=== PATIENT | female | born 1945 | race Caucasian/White ===

== ENCOUNTER → 2016-11-14 | Outpatient (CLI) | payer MEDICARE, OTHER | LOC: RAD 13:48 | PROVIDERS: ATTEND Family Medicine | DX: Z12.31 Encounter for screening mammogram for malignant neoplasm of breast (principal) | CPT/HCPCS: 77067 ==

== ENCOUNTER → 2018-10-28 | Outpatient (CLI) | payer MEDICARE, OTHER | LOC: CARD 13:16 | PROVIDERS: ATTEND Internal Medicine Interventional Cardiology | DX: E78.5 Hyperlipidemia, unspecified (principal); I10 Essential (primary) hypertension; M79.89 Other specified soft tissue disorders; R06.00 Dyspnea, unspecified; Z87.891 Personal history of nicotine dependence | CPT/HCPCS: 93306 ==

== ENCOUNTER → 2018-12-26 | Outpatient (CLI) | payer MEDICARE, OTHER ==
[~2018-12-26] MED LIST: CATHETER FLUSH 10 ML SYR IV PRN; REGADENOSON 0.4 MG/5 ML SYR (LEXISCAN) IV ONE
[2018-12-26 08:59] VITALS: BP 139/77
[2018-12-26 09:02] VITALS: BP 139/93
--- NOTE | 2018-12-27 12:40 | Cardiology Stress Test Report ---
Stress Test Report Type of NM Stress Test: Test Type: LEXISCAN 0.4MG/5ML Date of Procedure/Referring: Date of Procedure: Dec 26, 2018 PCP Goran Hooper MD Admitting Physician Ivette Boyle MD Indications: Shortness of breath Baseline Heart Rate: 59 Baseline Blood Pressure: Blood Pressure Systolic: 139 Blood Pressure Diastolic: 93 Baseline EKG: Baseline EKG: sinus rhythm Summary & Conclusion: Summary: The patient was brought to the stress lab after informed consent was taken. Stress test was performed according to the Lexiscan protocol. 0.4 mg of IV Lexiscan was given. Low-grade exercise was performed. Baseline EKG showed sinus rhythm at 59 BPM. Initial blood pressure was 139/77 mmHg. Maximum heart rate was 79 bpm and blood pressure 152/80 mmHg. Patient did not have any chest pain, arrhythmias or ST segment changes during the stress test. 8.71 mCi of Myoview were given for rest imaging and 23.8 mCi of Myoview given for stress imaging. Transient ischemic dilatation score 0.8, EF 66 percent. Normal wall motion. Normal myocardial perfusion imaging during rest and stress. Conclusion: Pharmacological stress test was negative for ischemia. Normal LV function with no wall motion abnormalities. Normal myocardial perfusion imaging during rest and stress. Goran HOOPER MD Dec 27, 2018 12:40
== END ==
LOC: CARD 07:17
PROVIDERS: ATTEND Internal Medicine Interventional Cardiology
DX: E78.5 Hyperlipidemia, unspecified (principal); I10 Essential (primary) hypertension; M79.89 Other specified soft tissue disorders; R06.00 Dyspnea, unspecified; R06.02 Shortness of breath; Z87.891 Personal history of nicotine dependence
CPT/HCPCS: 78452; 93017

== ENCOUNTER → 2019-01-10 | Outpatient (CLI) | payer MEDICARE, OTHER ==
--- NOTE | 2019-01-10 18:01 | Diagnostic Imaging Report ---
INDICATION: Routine screening. COMPARISON: Prior mammograms from 12/12/2017 and 11/14/2016. EXAMINATION: 2D and 3D bilateral screening mammography was performed with CAD. 3D tomographic images were obtained and reviewed. The current study was also evaluated with a Computer Aided Detection (CAD) system. FINDINGS: Bilateral breast implants are again noted. There are calcifications along the implant shells, bilaterally. Overall contour appears stable. Scattered fibroglandular densities are identified, bilaterally. The parenchymal pattern appears to be stable. No mass or malignant appearing microcalcifications are seen. The axillae are unremarkable. IMPRESSION: No mammographic features suspicious for malignancy are identified. ACR BI-RADS Category 2: Benign findings. Result letter will be mailed to the patient. Note: At least 10% of breast cancer is not imaged by mammography. Dictated on workstation # [id number]
== END ==
LOC: RAD 10:14
PROVIDERS: ATTEND Nurse Practitioner Family
DX: Z12.31 Encounter for screening mammogram for malignant neoplasm of breast (principal)
CPT/HCPCS: 77067

== ENCOUNTER → 2019-08-11 | Outpatient (CLI) | payer MEDICARE | LOC: LABNPT 14:38 → MERGE 14:38 | PROVIDERS: ATTEND Nurse Practitioner Family | DX: R50.9 Fever, unspecified (principal); R05 Cough | CPT/HCPCS: 87430; 87635; 87804 ==

== ENCOUNTER → 2020-01-27 | Outpatient (CLI) | payer MEDICARE ==
--- NOTE | 2020-01-27 13:18 | Diagnostic Imaging Report ---
INDICATION: Routine screening. COMPARISON: 01/10/2019 and 12/12/2017. TECHNIQUE: 2D and 3D bilateral screening mammography was performed with CAD. FINDINGS: Bilateral breast implants are again noted. There are some calcifications along the implant shells bilaterally. No extracapsular rupture is seen. Both breasts are heterogeneously dense, limiting the sensitivity of mammography. The parenchymal pattern is stable. No mass or malignant appearing microcalcifications are seen. The axillae are unremarkable. IMPRESSION: No mammographic features suspicious for malignancy are identified. ACR BI-RADS Category 2: Benign findings. Result letter will be mailed to the patient. Note: At least 10% of breast cancer is not imaged by mammography. Dictated by: Dictated on workstation # [id number]
== END ==
LOC: RAD 08:38
PROVIDERS: ATTEND Nurse Practitioner Family
DX: Z12.31 Encounter for screening mammogram for malignant neoplasm of breast (principal)
CPT/HCPCS: 77063; 77067

== ENCOUNTER → 2020-09-14 | Outpatient (CLI) | payer MEDICARE, OTHER ==
--- NOTE | 2020-09-14 13:48 | Diagnostic Imaging Report ---
INDICATION: Anal cancer, abdominal pain, vomiting COMPARISON: None available. TECHNIQUE: Single radiograph of abdomen dated 09/14/2020 FINDINGS: Gas is identified within scattered loops of large and small bowel. No dilated bowel present. No differential air-fluid levels. No free air. No suspicious calcifications overlying the renal shadows. Low-grade osseous degenerative changes without acute osseous abnormality. IMPRESSION: No acute abnormality with additional findings as above. Dictated by: Dictated on workstation # [id number]
== END ==
LOC: RAD 10:26
DX: C21.0 Malignant neoplasm of anus, unspecified (principal); R10.9 Unspecified abdominal pain; R11.10 Vomiting, unspecified
CPT/HCPCS: 74018

== ENCOUNTER 2020-10-03 15:27 | Inpatient (IN) | payer MEDICARE, OTHER ==
[~2020-10-03] VITALS: Ht 162 cm; Wt 76.5 kg
[2020-10-03] VITALS (7 sets, daily range): BP systolic 90–106; BP diastolic 55–64
[2020-10-03] MEDS ORDERED: fentaNYL INJ 100 MCG/2 ML AMP IVP STA ×2 (15:42→16:14)
[2020-10-03] MEDS ORDERED: fentaNYL INJ 100 MCG/2 ML AMP ONE ×2 (15:42→16:17)
[2020-10-03] MEDS ORDERED: ONDANSETRON 4 MG/2 ML (SDV) Z0FRAN ONE (15:43)
[2020-10-03] MEDS ORDERED: ONDANSETRON 4 MG/2 ML (SDV) Z0FRAN IVP ONE (15:45)
[2020-10-03] MEDS ORDERED: LIDOCAINE UROJET 2% GEL 10 ML PKG ONE (15:52)
[2020-10-03 15:55] LABS: ALBUMIN 2.6 GM/DL (3.2-4.5); POTASSIUM 3.1 MMOL/L (3.6-5.0)
[2020-10-03 15:56] LABS: BASOPHILS % (AUTO) 0 % (0-10); CALCIUM 8.2 MG/DL (8.5-10.1); EOSINOPHILS % (AUTO) 3 % (0-10); LYMPHOCYTES % (AUTO) 3 % (12-44); MEAN CORPUSCULAR HEMOGLOBIN 30 pg (25-34); MEAN CORPUSCULAR HGB CONC 33 g/dL (32-36); MEAN CORPUSCULAR VOLUME 90 fL (80-99); MEAN PLATELET VOLUME 12.1 fL (9.0-12.2); MONOCYTES # (AUTO) 0.1 10^3/uL (0.0-1.0); MONOCYTES % (AUTO) 25 % (0-12); NEUTROPHILS # (AUTO) 0.2 10^3/uL (1.8-7.8); NEUTROPHILS % (AUTO) 59 % (42-75)
[2020-10-03 15:58] LABS: TOTAL PROTEIN 5.6 GM/DL (6.4-8.2)
[2020-10-03 15:59] LABS: BILIRUBIN,TOTAL 1.4 MG/DL (0.1-1.0)
[2020-10-03 16:01] LABS: CREATININE SERUM 3.3 MG/DL (0.60-1.30)
[2020-10-03 16:02] LABS: WHITE BLOOD COUNT 0.3 10^3/uL (4.3-11.0)
[2020-10-03 16:03] LABS: HEMATOCRIT 19 % (35-52); HEMOGLOBIN 6.4 g/dL (11.5-16.0); PLATELET COUNT 38 10^3/uL (130-400)
[2020-10-03 16:07] LABS: CLARITY,URINE CLEAR; COLOR,URINE AMBER; GLUCOSE, URINE (UA) NEGATIVE (NEGATIVE); KETONES,URINE TRACE (NEGATIVE); LEUKOCYTE ESTERASE ,URINE NEGATIVE (NEGATIVE); NITRITE,URINE POSITIVE (NEGATIVE); PH,URINE 5.5 (5-9); PROTEIN,URINE TRACE (NEGATIVE)
[2020-10-03 16:19] LABS: BACTERIA,URINE FEW /HPF; BILIRUBIN,URINE 1+ (NEGATIVE); SQUAMOUS EPITHELIAL CELL,UR RARE /HPF; WBC,URINE 0-2 /HPF
--- NOTE | 2020-10-03 16:31 | ED GI ---
General Stated Complaint: NAUSEA, VOMITTING, WEAKNESS Source of Information: Patient Exam Limitations: No Limitations History of Present Illness Date Seen by Provider: Oct 03, 2020 Time Seen by Provider: 15:32 Initial Comments Here with report of nausea, vomiting and weakness. She has had diarrhea for over a week but that has settled down today. Not drinking well. Does have rectal cancer and has been doing chemotherapy and radiation therapy. Does complain of significant pain perirectal. Is using a salve on that and that is helping. States that she has not been urinating much but always feels like she has to urinate. EMS noted blood pressure in the 70s in the field but that has improved with IV fluid. She does have a port that was accessed by EMS which was not drying well so peripheral IV also initiated. Timing/Duration: 2-3 Days, Getting Worse Severity/Quality: Moderate, Aching, Sharp Location: Other (Rectal) Radiation: No Radiation Activities at Onset: None Associated Symptoms: No Back Pain, No Fever/Chills; Nausea/Vomiting, Weakness Allergies and Home Medications Allergies Coded Allergies: No Allergy Information Available (Unverified , 12/26/18) Patient Home Medication List Home Medication List Reviewed: Yes Review of Systems Review of Systems Constitutional: see HPI; No chills, No fever EENTM: No Symptoms Reported Respiratory: Denies Cough, Denies Shortness of Air Cardiovascular: Denies Chest Pain, Denies Lightheadedness Gastrointestinal: Diarrhea, Nausea, Vomiting Genitourinary: See HPI Musculoskeletal: no symptoms reported Skin: no symptoms reported All Other Systems Reviewed Negative Unless Noted: Yes Past Mxmeyur-Nfralj-Jykspv Hx Past Med/Social Hx: Reviewed Nursing Past Med/Soc Hx Patient Social History Alcohol Use: Occasionally Uses Past Medical History Surgeries: Yes (Port placement, breast surgery, chin left) Hysterectomy Respiratory: No Cardiac: Yes High Cholesterol, Hypertension Neurological: No Gastrointestinal: Yes Gastroesophageal Reflux Endocrine: Yes Hypothyroidsim Cancer: Yes Rectal Did You Recieve Any Treatments: Yes What Type of Treatment Did You: Chemotherapy, Radiation Psychosocial: Yes Anxiety Family Medical History Reviewed Nursing Family Hx No Pertinent Family Hx Physical Exam Vital Signs Capillary Refill : Height/Weight/BMI Height: '" Weight: lbs. oz. kg; BMI Method: General Appearance: WD/WN, no apparent distress HEENT: PERRL/EOMI, pharynx normal Neck: full range of motion, supple Respiratory: lungs clear, normal breath sounds Cardiovascular: regular rate, rhythm, no murmur Gastrointestinal: non tender, soft Extremities: non-tender, normal inspection, no pedal edema Back: normal inspection, no vertebral tenderness Neurologic/Psychiatric: alert, oriented x 3 Skin: warm/dry, pallor Focused Exam Lactate Level 10/03/20 16:05: Lactic Acid Level Laboratory Tests Test 10/03/20 16:05 Progress/Results/Core Measures Results/Orders Lab Results Laboratory Tests Test 10/03/20 15:31 10/03/20 15:50 10/03/20 16:05 Range/Units White Blood Count 0.3 *L 4.3-11.0 10^3/uL Red Blood Count 2.16 L 3.80-5.11 10^6/uL Hemoglobin 6.4 *L 11.5-16.0 g/dL Hematocrit 19 *L 35-52 % Mean Corpuscular Volume 90 80-99 fL Mean Corpuscular Hemoglobin 30 25-34 pg Mean Corpuscular Hemoglobin Concent 33 32-36 g/dL Red Cell Distribution Width 17.5 H 10.0-14.5 % Platelet Count 38 *L 130-400 10^3/uL Mean Platelet Volume 12.1 9.0-12.2 fL Immature Granulocyte % (Auto) 9 % Neutrophils (%) (Auto) 59 42-75 % Lymphocytes (%) (Auto) 3 L 12-44 % Monocytes (%) (Auto) 25 H 0-12 % Eosinophils (%) (Auto) 3 0-10 % Basophils (%) (Auto) 0 0-10 % Neutrophils # (Auto) 0.2 L 1.8-7.8 10^3/uL Lymphocytes # (Auto) 0.0 L 1.0-4.0 10^3/uL Monocytes # (Auto) 0.1 0.0-1.0 10^3/uL Eosinophils # (Auto) 0.0 0.0-0.3 10^3/uL Basophils # (Auto) 0.0 0.0-0.1 10^3/uL Immature Granulocyte # (Auto) 0.0 0.0-0.1 10^3/uL Sodium Level 130 L 135-145 MMOL/L Potassium Level 3.1 L 3.6-5.0 MMOL/L Chloride Level 94 L 98-107 MMOL/L Carbon Dioxide Level 14 L 21-32 MMOL/L Anion Gap 22 H 5-14 MMOL/L Blood Urea Nitrogen 30 H 7-18 MG/DL Creatinine 3.30 H 0.60-1.30 MG/DL Estimat Glomerular Filtration Rate 14 BUN/Creatinine Ratio 9 Glucose Level 100 70-105 MG/DL Calcium Level 8.2 L 8.5-10.1 MG/DL Corrected Calcium 9.3 8.5-10.1 MG/DL Total Bilirubin 1.4 H 0.1-1.0 MG/DL Aspartate Amino Transf (AST/SGOT) 5 5-34 U/L Alanine Aminotransferase (ALT/SGPT) 9 0-55 U/L Alkaline Phosphatase 76 40-136 U/L C-Reactive Protein High Sensitivity 49.31 H 0.00-0.50 MG/DL Total Protein 5.6 L 6.4-8.2 GM/DL Albumin 2.6 L 3.2-4.5 GM/DL Urine Color PRASHANTH H Urine Clarity CLEAR Urine pH 5.5 5-9 Urine Specific [place] 1.020 1.016-1.022 Urine Protein TRACE H NEGATIVE Urine Glucose (UA) NEGATIVE NEGATIVE Urine Ketones TRACE H NEGATIVE Urine Nitrite POSITIVE H NEGATIVE Urine Bilirubin 1+ H NEGATIVE Urine Urobilinogen 0.2 < = 1.0 MG/DL Urine Leukocyte Esterase NEGATIVE NEGATIVE Urine RBC (Auto) NEGATIVE NEGATIVE Urine RBC NONE /HPF Urine WBC 0-2 /HPF Urine Squamous Epithelial Cells RARE /HPF Urine Crystals NONE /LPF Urine Bacteria FEW H /HPF Urine Casts PRESENT /LPF Urine Hyaline Casts 5-10 H /LPF Urine Mucus NEGATIVE /LPF Urine Culture Indicated YES My Orders Orders - CHARLOTTE GREER MD Cbc With Automated Diff (10/03/20 15:42) Comprehensive Metabolic Panel (10/03/20 15:42) Hs C Reactive Protein (10/03/20 15:42) Lactic Acid Analyzer (10/03/20 15:42) Ua Culture If Indicated (10/03/20 15:42) Blood Culture (10/03/20 15:42) Catheter(Urinary) Insert & Ass 03,15 (10/03/20 15:42) Ondansetron Injection (Zofran Injectio (10/03/20 15:45) Fentanyl Inj (Sublimaze Injection) (10/03/20 15:42) Fentanyl Inj (Sublimaze Injection) (10/03/20 15:42) Ondansetron Injection (Zofran Injectio (10/03/20 15:43) Lidocaine 2% (Urojet) (Xylocaine Urojet) (10/03/20 15:52) Manual Differential (10/03/20 15:31) Red Cells Leukocytes Reduced (10/03/20 16:14) Fentanyl Inj (Sublimaze Injection) (10/03/20 16:14) Type And Screen (10/03/20 16:14) Urine Culture (10/03/20 15:50) Fentanyl Inj (Sublimaze Injection) (10/03/20 16:17) Cefepime 1 Gm Iv (1x Dose) (10/03/20 16:45) Medications Given in ED Current Medications Medications Dose Ordered Sig/Kellie Route Start Time Stop Time Status Last Admin Dose Admin Lidocaine HCl 10 ml STK-MED ONCE .ROUTE 10/03/20 15:52 10/03/20 15:54 DC 10/03/20 15:55 10 ML Ondansetron HCl 4 mg ONCE ONCE IVP 10/03/20 15:45 10/03/20 15:46 DC 10/03/20 15:47 4 MG Progress Progress Note : Progress Note Seen and evaluated. IV, labs, blood cultures and lactic acid ordered. UA ordered. Matthews catheter ordered. We will complete fluid initiated by EMS of 1 L normal saline bolus. Fentanyl 50 mcg IV and Zofran 4 mg IV ordered. Monitor patient. 1635: UTI noted. Cefepime 1 g IV ordered after discussion with Dr. Guzman on-call for Dr. Boyle. She accepts patient for admission, inpatient status. Patient noted to have hemoglobin of 6.4 which will be worsened with fluid administration. We have type and cross for 2 units to give. Lasix 20 mg IV between. We will continue gentle fluid hydration as urine is quite dark and concentrated. All findings and concerns discussed with patient and family who agree with plan. Departure Communication (Admissions) Time/Spoke to Admitting Phy: 16:35 Impression Primary Impression: Urinary tract infection Qualified Codes: N30.00 - Acute cystitis without hematuria Additional Impressions: Profound anemia Qualified Codes: D64.9 - Anemia, unspecified Rectal cancer Disposition: ADMITTED INPATIENT Condition: Stable Admissions Decision to Admit Reason: Admit from ER (General) Decision to Admit/Date: Oct 03, 2020 Time/Decision to Admit Time: 16:35 Departure-Patient Inst. Referrals: RANJITH BOYLE MD (PCP/Family) Primary Care Physician CHARLOTTE GREER MD Oct 03, 2020 16:30
[2020-10-03] MEDS ORDERED: CEFEPIME INJECTION 1,000 MG in WATER (STERILE) FOR INJECTION 10 ML IV ONE (16:45)
[2020-10-03] MEDS ORDERED: NS IV 1000 ML 1,000 ML ONE (17:02)
[2020-10-03 19:58] LABS: BAND NEUTROPHILS 44 %; NEUTROPHILS % (MANUAL) 36 %
[2020-10-03 19:59] LABS: EOSINOPHILS % (MANUAL) 4 %; HYPOCHROMASIA MARKED; LYMPHOCYTES % (MANUAL) 8 %; MICROCYTOSIS MODERATE; MONOCYTES % (MANUAL) 8 %; PLATELET ESTIMATE DECREASED
[2020-10-03 20:00] LABS: BURR CELLS MARKED
[2020-10-03] MEDS ORDERED: LORazepam INJ 2 MG/ML (ATIVAN) VIAL IVP PRN (20:15)
[2020-10-03] MEDS: NS IV 1000 ML 1,000 ML IV SCH (20:58)
[2020-10-03] MEDS ORDERED: FUROSEMIDE 40 MG/4 ML INJ (LASIX) IVP ONE (21:00)
[2020-10-03] MEDS ORDERED: FUROSEMIDE 40 MG/4 ML INJ (LASIX) ONE (21:01)
[2020-10-03] MEDS: ONDANSETRON 4 MG/2 ML (SDV) Z0FRAN IVP PRN (21:03)
[2020-10-04 00:21] VITALS: BP 97/60
[2020-10-04] MEDS: fentaNYL INJ 100 MCG/2 ML AMP IVP PRN ×3 (00:28→17:09)
[2020-10-04 03:52] VITALS: BP 91/52
[2020-10-04] MEDS: CEFEPIME 1,000 MG/SWFI 10 ML IV PUSH IV SCH ×4 (04:18→17:02)
[2020-10-04] MEDS: NS IV 1000 ML 1,000 ML IV SCH ×3 (04:19→23:41)
[2020-10-04 05:14] LABS: BASOPHILS % (AUTO) 0 % (0-10); EOSINOPHILS % (AUTO) 3 % (0-10); HEMATOCRIT 25 % (35-52); HEMOGLOBIN 8.1 g/dL (11.5-16.0); LYMPHOCYTES % (AUTO) 11 % (12-44); MEAN CORPUSCULAR HEMOGLOBIN 30 pg (25-34); MEAN CORPUSCULAR HGB CONC 33 g/dL (32-36); MEAN CORPUSCULAR VOLUME 91 fL (80-99); MEAN PLATELET VOLUME 10.9 fL (9.0-12.2); MONOCYTES # (AUTO) 0.1 10^3/uL (0.0-1.0); MONOCYTES % (AUTO) 21 % (0-12); NEUTROPHILS # (AUTO) 0.2 10^3/uL (1.8-7.8); NEUTROPHILS % (AUTO) 47 % (42-75)
[2020-10-04 05:15] LABS: PLATELET COUNT 32 10^3/uL (130-400); WHITE BLOOD COUNT 0.4 10^3/uL (4.3-11.0)
[2020-10-04 05:30] LABS: ALBUMIN 2.4 GM/DL (3.2-4.5); POTASSIUM 2.8 MMOL/L (3.6-5.0)
[2020-10-04 05:31] LABS: CALCIUM 7.8 MG/DL (8.5-10.1)
[2020-10-04 05:34] LABS: BILIRUBIN,TOTAL 2.4 MG/DL (0.1-1.0)
[2020-10-04 05:36] LABS: CREATININE SERUM 2.64 MG/DL (0.60-1.30)
[2020-10-04] MEDS ORDERED: KCL 20 MEQ TAB (K-DUR) PO ONE (06:15)
[2020-10-04 07:59] VITALS: BP 93/58
--- NOTE | 2020-10-04 09:32 | History & Physical ---
History of Present Illness History of Present Illness Reason for visit/HPI PT IS A 75 Y/O FEMALE WHO IS KNOWN TO ME FROM CLINIC. SHE PRESENTED TO THE HOSPITAL WITH SEVERE WEAKNESS, MALAISE, UTI SYMPTOMS. SHE WAS FOUND TO BE PROFOUNDLY DEHYDRATED AND SEVERELY ANEMIC ON EVAL IN THE ER. SHE WAS IN ACUTE RENAL FAILURE WITH EXTENSIVE VOLUME CONTRACTION. SHE WAS THEREFORE ADMITTED TO THE HOSPITAL FOR REHYDRATION, BLOOD PRODUCTS, AND ELECTROLYTE REPLENISHMENT. Date of Admission Oct 03, 2020 at 16:57 Date Seen by a Provider: Oct 04, 2020 Time Seen by a Provider: 08:50 I consulted on this patient on 10/04/20 09:30 Attending Physician RANJITH BOYLE MD Admitting Physician Ranjith Boyle MD Consult ONCOLOGY Allergies and Home Medications Allergies Coded Allergies: No Allergy Information Available (Unverified , 12/26/18) Home Medications Alprazolam 0.5 Mg Tablet, 0.5 MG PO HS, (Reported) Last Action: Reviewed Atorvastatin Calcium 10 Mg Tablet, 10 MG PO 1000, (Reported) Last Action: Reviewed Calcium Carbonate 500 Mg Tablet, 500 MG PO DAILY, (Reported) Last Action: Reviewed Dicyclomine HCl 20 Mg Tablet, 20 MG PO QID, (Reported) Last Action: Converted Diphenoxylate HCl/Atropine 1 Each Tablet, 1-2 TAB PO Q6H PRN for LOOSE STOOLS, (Reported) TAKE 2 TABLETS BY MOUTH NOW THEN TAKE ONE TABLET BY MOUTH AFTER EACH LOOSE STOOL. MAXIMUM OF 8 TABLETS PER 24 HOURS. Last Action: Continued Hydrocodone/Acetaminophen 1 Each Tablet, 1 EACH PO Q6H PRN for PAIN-MODERATE (5- 7), (Reported) Last Action: Reviewed Levothyroxine Sodium 100 Mcg Tablet, 100 MCG PO DAILY, (Reported) Last Action: Reviewed Naproxen Sodium 220 Mg Tablet, 220 MG PO BID PRN for PAIN-MILD (1-4), (Reported) Last Action: Reviewed Omeprazole 20 Mg Capsule.dr, 20 MG PO 1000, (Reported) Last Action: Reviewed Potassium Chloride 10 Meq Capsule.er, 10 MEQ PO DAILY, (Reported) Last Action: Reviewed Spironolactone 25 Mg Tablet, 25 MG PO 1000, (Reported) Last Action: Reviewed Patient Home Medication List Home Medication List Reviewed: Yes Past Puapjit-Aqaurj-Ikmuse Hx Past Med/Social Hx: Reviewed Nursing Past Med/Soc Hx Patient Social History Marrital Status: Living Status: LIVES AT HOME WITH SPOUSE Employed/Student: retired Alcohol Use: Occasionally Uses Recreational Drug Use: No Smoking Status: Never a Smoker 2nd Hand Smoke Exposure: No Physical Abuse Screen: No Sexual Abuse: No Recent Foreign Travel: No Contact w/other who traveled: No Recent Hopitalizations: No Recent Infectious Disease Expo: No Seasonal Allergies Seasonal Allergies: No Past Medical History Surgeries: Hysterectomy Cardiac: High Cholesterol, Hypertension Gastrointestinal: Gastroesophageal Reflux Endocrine: Hypothyroidsim Cancer: Rectal Did You Recieve Any Treatments: Yes What Type of Treatment Did You: Chemotherapy, Radiation Psychosocial: Anxiety Family History Reviewed Nursing Family Hx No Pertinent Family Hx Review of Systems Constitutional: No chills, No fever; malaise, weakness EENTM: No hoarseness, No throat pain Respiratory: No cough, No dyspnea on exertion, No short of breath Cardiovascular: No chest pain, No edema Gastrointestinal: No abdominal pain; diarrhea; No nausea, No vomiting; other (RECTAL PAIN) Genitourinary: other (VAGINAL PAIN DUE TO RADIATION BURN) Musculoskeletal: muscle weakness Skin: other (RADIATION BURN TO VAGINA) Psychiatric/Neurological: Denies Anxiety, Denies Depressed; Weakness All Other Systems Reviewed Negative Unless Noted: Yes Physical Exam Vital Signs Vital Signs - First Documented 10/03/20 10/03/20 15:27 17:13 Temp 36.5 Pulse 79 Resp 24 B/P (MAP) 118/59 (78) Pulse Ox 95 O2 Delivery Nasal Cannula O2 Flow Rate 2.00 Capillary Refill : Less Than 3 Seconds Height, Weight, BMI Height: '" Weight: lbs. oz. kg; 29.00 BMI Method: General Appearance: WD/WN, Mild Distress Eyes: Bilateral Eye Normal Inspection, Bilateral Eye PERRL, Bilateral Eye EOMI HEENT: PERRL/EOMI, Normal ENT Inspection, Pharynx Normal Neck: Full Range of Motion, Non Tender, Supple Respiratory: Chest Non Tender, Lungs Clear, Normal Breath Sounds, No Accessory Muscle Use, No Respiratory Distress Cardiovascular: Regular Rate, Rhythm, No Edema, Normal Peripheral Pulses Gastrointestinal: Normal Bowel Sounds, No Organomegaly, No Pulsatile Mass, Non Tender, Soft Genital/Rectal: Other (PINK/BURNED TISSUE WITH SKIN PEELING ON VAGINAL AN PERINEAL TISSUE, EDEMA TO VAGINA) Back: No Vertebral Tenderness Extremity: Normal Capillary Refill, Normal Inspection, Normal Range of Motion, Non Tender, No Calf Tenderness, No Pedal Edema Neurologic/Psychiatric: Alert, Oriented x3, No Motor/Sensory Deficits, 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
[2020-10-04] MEDS ORDERED: LIDOCAINE JELLY 2% (XYLOCAINE) 30 ML TUBE TOP SCH (10:00)
[2020-10-04] MEDS: POTASSIUM CL 10MEQ/50ML IVPB 50 ML IV SCH ×4 (10:16→13:17)
[2020-10-04] MEDS: LIDOCAINE JELLY 2% 6 ML SYRINGE TOP SCH ×3 (11:27→20:12)
[2020-10-04] MEDS ORDERED: NS IV 1000 ML 1,000 ML IV ONE (11:30)
[2020-10-04 11:48] VITALS: BP 84/49
[2020-10-04] MEDS ORDERED: ALPR0.5T7 PO (15:04)
[2020-10-04] MEDS ORDERED: OMEP20CA18 PO (15:04)
[2020-10-04] MEDS ORDERED: DIPH1TAB25 PO (15:04)
[2020-10-04] MEDS ORDERED: SPIR25TA5 PO (15:04)
[2020-10-04] MEDS ORDERED: NAPR220T66 PO (15:04)
[2020-10-04] MEDS ORDERED: CALC-823 PO (15:04)
[2020-10-04] MEDS ORDERED: ATOR10TA66 PO (15:04)
[2020-10-04] MEDS ORDERED: ACHD5005 PO (15:04)
[2020-10-04] MEDS ORDERED: LEVO100T7 PO (15:04)
[2020-10-04] MEDS ORDERED: DICY20TA10 PO (15:04)
[2020-10-04] MEDS ORDERED: POTA10CA43 PO (15:05)
[2020-10-04 15:30] VITALS: BP 108/54
[2020-10-04] MEDS ORDERED: RX-DIPHENO./ATROP. 2.5/0.25 MG (LOMOTIL) TAB PPK#4 PO PRN (17:30)
[2020-10-04] MEDS: DICYCLOMINE 10 MG (BENTYL) CAP PO SCH (20:13)
[2020-10-04] MEDS: DIPHENOXYLATE/ATROPINE 2.5MG/0.025MG (LOMOTIL) TAB PO PRN (20:13)
[2020-10-04 20:34] VITALS: BP 101/64
[2020-10-04] MEDS ORDERED: NON-FORMULARY MEDICATION 1 EA EA (Dicyclomine HCl 20 MG) PO SCH (21:00)
[2020-10-05] VITALS (7 sets, daily range): BP systolic 104–159; BP diastolic 64–70
[2020-10-05] MEDS: LIDOCAINE JELLY 2% 6 ML SYRINGE TOP SCH ×7 (00:36→23:10)
[2020-10-05] MEDS: fentaNYL INJ 100 MCG/2 ML AMP IVP PRN ×4 (00:59→17:42)
[2020-10-05] MEDS: NS IV 1000 ML 1,000 ML IV SCH ×3 (02:05→17:52)
[2020-10-05] MEDS: CEFEPIME 1,000 MG/SWFI 10 ML IV PUSH IV SCH ×6 (05:24→20:28)
[2020-10-05 05:32] LABS: HEMOGLOBIN 7.9 g/dL (11.5-16.0); MONOCYTES # (AUTO) 0.2 10^3/uL (0.0-1.0)
[2020-10-05 05:35] LABS: BASOPHILS % (AUTO) 2 % (0-10); EOSINOPHILS % (AUTO) 2 % (0-10); HEMATOCRIT 24 % (35-52); LYMPHOCYTES # (AUTO) 0.1 10^3/uL (1.0-4.0); LYMPHOCYTES % (AUTO) 8 % (12-44); MEAN CORPUSCULAR HEMOGLOBIN 30 pg (25-34); MEAN CORPUSCULAR HGB CONC 33 g/dL (32-36); MEAN CORPUSCULAR VOLUME 91 fL (80-99); MEAN PLATELET VOLUME 10.5 fL (9.0-12.2); MONOCYTES % (AUTO) 31 % (0-12); NEUTROPHILS # (AUTO) 0.3 10^3/uL (1.8-7.8); NEUTROPHILS % (AUTO) 49 % (42-75)
[2020-10-05 05:41] LABS: PLATELET COUNT 31 10^3/uL (130-400); WHITE BLOOD COUNT 0.6 10^3/uL (4.3-11.0)
[2020-10-05 06:00] LABS: ALBUMIN 2.3 GM/DL (3.2-4.5); BILIRUBIN,TOTAL 1.1 MG/DL (0.1-1.0); CALCIUM 8.4 MG/DL (8.5-10.1); CREATININE SERUM 1.31 MG/DL (0.60-1.30); POTASSIUM 3.5 MMOL/L (3.6-5.0)
[2020-10-05] MEDS: DICYCLOMINE 10 MG (BENTYL) CAP PO SCH ×4 (07:49→20:28)
--- NOTE | 2020-10-05 09:30 | Progress Note ---
Subjective Subjective Date Seen by Provider: Oct 05, 2020 Time Seen by Provider: 09:05 PT IS A 75 Y/O FEMALE WHO IS KNOWN TO ME FROM CLINIC. SHE HAS RENAL FAILURE, DEHYDRATION AND SEVERE DEMAR-PAIN. Review of Systems General: No Chills; Fatigue HEENT: No Visual Changes Pulmonary: No Dyspnea, No Cough Cardiovascular: Other (PAIN IN PORT SITE); No: Chest Pain Gastrointestinal: Diarrhea; No: Nausea, Abdominal Pain Genitourinary: Other (OLIVA) Neurological: Weakness; No: Confusion All Other Systems Reviewed All Other Systems Reviewed: Yes Objective Exam Vital Signs Vital Signs - First Documented 10/03/20 10/03/20 15:27 17:13 Temp 36.5 Pulse 79 Resp 24 B/P (MAP) 118/59 (78) Pulse Ox 95 O2 Delivery Nasal Cannula O2 Flow Rate 2.00 Capillary Refill : Less Than 3 Seconds General Appearance: WD/WN, Mild Distress (DUE TO PAIN) HEENT: PERRL/EOMI, Pharynx Normal Neck: Full Range of Motion, Non Tender, Supple Respiratory: Chest Non Tender, Lungs Clear, Normal Breath Sounds Cardiovascular: Regular Rate, Rhythm, Normal Peripheral Pulses Gastrointestinal: Normal Bowel Sounds, Non Tender Genital/Rectal: Other (DENUDED SKIN OF VAGINAL TISSUE AND PERINEAL TISSUE) Extremity: Normal Capillary Refill, No Calf Tenderness, No Pedal Edema Neurologic/Psychiatric: Alert, Oriented x3, No Motor/Sensory Deficits, 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 Skin: Normal Color, Warm/Dry Lymphatic: No Adenopathy Results Lab Laboratory Tests 10/04/20 13:42: Lab Scanned Report Transfusion Reaction Form 10/05/20 05:03: White Blood Count 0.6*L, Red Blood Count 2.63L, Hemoglobin 7.9L, Hematocrit 24L, Mean Corpuscular Volume 91, Mean Corpuscular Hemoglobin 30, Mean Corpuscular Hemoglobin Concent 33, Red Cell Distribution Width 17.9H, Platelet Count 31*L, Mean Platelet Volume 10.5, Immature Granulocyte % (Auto) 8, Neutrophils (%) (Auto) 49, Lymphocytes (%) (Auto) 8L, Monocytes (%) (Auto) 31H, Eosinophils (%) (Auto) 2, Basophils (%) (Auto) 2, Neutrophils # (Auto) 0.3L, Lymphocytes # (Auto) 0.1L, Monocytes # (Auto) 0.2, Eosinophils # (Auto) 0.0, Basophils # (Auto) 0.0, Immature Granulocyte # (Auto) 0.1, Percent Immature Platelet Fraction 4.4, Sodium Level 134L, Potassium Level 3.5L, Chloride Level 107, Carbon Dioxide Level 16L, Anion Gap 11, Blood Urea Nitrogen 20H, Creatinine 1 .31H, Estimat Glomerular Filtration Rate 40, BUN/Creatinine Ratio 15, Glucose Level 92, Calcium Level 8.4L, Corrected Calcium 9.8, Total Bilirubin 1.1H, Aspartate Amino Transf (AST/SGOT) 7, Alanine Aminotransferase (ALT/SGPT) 8, Alkaline Phosphatase 67, Total Protein 5.0L, Albumin 2.3L Microbiology 10/03/20 Blood Culture - Preliminary, Resulted No growth 10/03/20 Urine Culture - Final, Complete NO GROWTH Assessment/Plan Assessment/Plan Admission Dx SEVERE DEHYDRATION ACUTE RENAL FAILURE ACUTE LIVER FAILURE DUE TO SHOCK HX OF RECTAL CARCINOMA URINARY TRACT INFECTION HYPONATREMIA HYPERBILIRUBINEMIA Assessment and Plan SEVERE DEHYDRATION ACUTE RENAL FAILURE ACUTE LIVER FAILURE DUE TO SHOCK HX OF RECTAL CARCINOMA URINARY TRACT INFECTION HYPONATREMIA HYPERBILIRUBINEMIA SEVERE DEHYDRATION - WITH ACUTE RENAL FAILURE - IV FLUIDS - CONTINUE AT 125ML/HR, MONITOR LABS, PT IMPROVING FROM A RENAL STANDPOINT ACUTE LIVER FAILURE DUE TO SHOCK - IMPROVING HX OF RECTAL CARCINOMA - SUPPORTIVE CARE ONLY AT THIS TIME. URINARY TRACT INFECTION - CONTINUE WITH IV ANTIBIOTICS - CULTURE REPORT NEGATIVE HYPONATREMIA - REPLACED WITH HYPERTONIC SALINE - CONTINUE WITH NORMAL SALINE AT THIS TIME, MONITOR LABS HYPERBILIRUBINEMIA DIARRHEA - CONTINUE WITH IV FLUIDS - CONTINUE WITH LOMOTIL, START QUESTRAN Admission Dx SEVERE DEHYDRATION ACUTE RENAL FAILURE ACUTE LIVER FAILURE DUE TO SHOCK HX OF RECTAL CARCINOMA URINARY TRACT INFECTION HYPONATREMIA HYPERBILIRUBINEMIA Clinical Quality Measures Admission Status Admission Dx SEVERE DEHYDRATION ACUTE RENAL FAILURE ACUTE LIVER FAILURE DUE TO SHOCK HX OF RECTAL CARCINOMA URINARY TRACT INFECTION HYPONATREMIA HYPERBILIRUBINEMIA RANJITH HOUSE MD Oct 05, 2020 09:30
[2020-10-05] MEDS: MAGNESIUM 1 GM/100 ML IVPB 100 ML IV SCH ×2 (09:37→10:39)
[2020-10-05] MEDS: POTASSIUM CL 10MEQ/50ML IVPB 50 ML IV SCH ×2 (09:39→10:39)
[2020-10-05] MEDS: DIPHENOXYLATE/ATROPINE 2.5MG/0.025MG (LOMOTIL) TAB PO SCH ×2 (09:42→16:09)
[2020-10-05] MEDS: CHOLESTYRAMINE 4 GM (QUESTRAN LITE, PREVALITE) PKT PO SCH (09:42)
--- NOTE | 2020-10-05 09:47 | Consultation - Surgery ---
History of Present Illness History of Present Illness Patient Consulted On(jourdan/time) 10/05/20 09:42 Time Seen by Provider: 08:52 History of Present Illness Surgery asked to consult regarding non-functioning port. HPI per ED: Here with report of nausea, vomiting and weakness. She has had diarrhea for over a week but that has settled down today. Not drinking well. Does have rectal cancer and has been doing chemotherapy and radiation therapy. Does complain of significant pain perirectal. Is using a salve on that and that is helping. States that she has not been urinating much but always feels like she has to urinate. EMS noted blood pressure in the 70s in the field but that has improved with IV fluid. She does have a port that was accessed by EMS which was not drying well so peripheral IV also initiated. Timing/Duration: 2-3 Days, Getting Worse Severity/Quality: Moderate, Aching, Sharp Location: Other (Rectal) Radiation: No Radiation Activities at Onset: None Associated Symptoms: No Back Pain, No Fever/Chills; Nausea/Vomiting, Weakness When I spoke to pt this am, she stated the pain shoots up into her neck. She had the port placed about 6 weeks ago in [place] and states they have been using it without any difficulty until just recently. First they were unable to draw back the other day and then yesterday they could not even flush it. Pt is undergoing chemo and radiation for rectal CA. Her other main complaint is severe pain in labial and rectal area from the radiation treatments. Also complains of dry mouth. Allergies and Home Medications Allergies Coded Allergies: No Allergy Information Available (Unverified , 12/26/18) Home Medications Alprazolam 0.5 Mg Tablet, 0.5 MG PO HS, (Reported) Last Action: Reviewed Atorvastatin Calcium 10 Mg Tablet, 10 MG PO 1000, (Reported) Last Action: Reviewed Calcium Carbonate 500 Mg Tablet, 500 MG PO DAILY, (Reported) Last Action: Reviewed Dicyclomine HCl 20 Mg Tablet, 20 MG PO QID, (Reported) Last Action: Converted Diphenoxylate HCl/Atropine 1 Each Tablet, 1-2 TAB PO Q6H PRN for LOOSE STOOLS, (Reported) TAKE 2 TABLETS BY MOUTH NOW THEN TAKE ONE TABLET BY MOUTH AFTER EACH LOOSE STOOL. MAXIMUM OF 8 TABLETS PER 24 HOURS. Last Action: Continued Hydrocodone/Acetaminophen 1 Each Tablet, 1 EACH PO Q6H PRN for PAIN-MODERATE (5- 7), (Reported) Last Action: Reviewed Levothyroxine Sodium 100 Mcg Tablet, 100 MCG PO DAILY, (Reported) Last Action: Reviewed Naproxen Sodium 220 Mg Tablet, 220 MG PO BID PRN for PAIN-MILD (1-4), (Reported) Last Action: Reviewed Omeprazole 20 Mg Capsule.dr, 20 MG PO 1000, (Reported) Last Action: Reviewed Potassium Chloride 10 Meq Capsule.er, 10 MEQ PO DAILY, (Reported) Last Action: Reviewed Spironolactone 25 Mg Tablet, 25 MG PO 1000, (Reported) Last Action: Reviewed Patient Home Medication List Home Medication List Reviewed: Yes Past Kkfykta-Gtibko-Zgjxiz Hx Patient Social History Smoking Status: Never a Smoker Recent Hopitalizations: No Seasonal Allergies Seasonal Allergies: No Surgeries History of Surgeries: Yes (Port placement, breast surgery, chin left) Surgeries: Hysterectomy Respiratory History of Respiratory Disorde: No Cardiovascular History of Cardiac Disorders: Yes Cardiac Disorders: High Cholesterol, Hypertension Neurological History of Neurological Disord: No Genitourinary History of Genitourinary Disor: No Gastrointestinal History of Gastrointestinal Di: Yes Gastrointestinal Disorders: Gastroesophageal Reflux Musculoskeletal History of Musculoskeletal Dis: No Endocrine History of Endocrine Disorders: Yes Endocrine Disorders: Hypothyroidsim HEENT History of HEENT Disorders: No Cancer History of Cancer: Yes Cancer: Rectal Psychosocial History of Psychiatric Problem: Yes Behavioral Health Disorders: Anxiety Family Medical History Significant Family History: Diabetes (denied in her family), Stroke (Mother) Review of Systems-General Constitutional: dizziness, malaise, weakness EENTM: No blurred vision, No double vision, No epistaxis, No throat swelling Respiratory: No cough, No dyspnea on exertion, No hemoptysis, No short of breath Cardiovascular: No chest pain, No edema Gastrointestinal: No abdominal pain; loss of appetite, nausea; No vomiting Genitourinary: dysuria, frequency, incontinence Musculoskeletal: joint pain, joint swelling, muscle pain, muscle stiffness Skin: see HPI, other (raw skin around labia and yandel-rectal) Psychiatric/Neurological: Anxiety, Depressed; Denies Seizure, Denies Tremors Other pt denies any hx of abnormal bleeding or bruising Physical Exam-General Problems Physical Exam Vital Signs Vital Signs - First Documented 10/03/20 10/03/20 15:27 17:13 Temp 36.5 Pulse 79 Resp 24 B/P (MAP) 118/59 (78) Pulse Ox 95 O2 Delivery Nasal Cannula O2 Flow Rate 2.00 Capillary Refill : Less Than 3 Seconds General Appearance: mild distress, obese, other (appears very weak and tired) Eyes: Bilateral Eye PERRL, Bilateral Eye EOMI HEENT: No scleral icterus (R), No scleral icterus (L); other (mouth is very dry and tongue cracked) Neck: non-tender, supple Respiratory: lungs clear, normal breath sounds, no respiratory distress, no accessory muscle use Cardiovascular: regular rate, rhythm, no murmur Gastrointestinal: non tender, soft, no organomegaly Rectal: deferred Genital/Rectal: other (exam done with Dr. Boyle, pt has skin breakdown around labia and rectal area (from radiation dent) covered with silver sulfadene which is helping) Extremities: no pedal edema, no calf tenderness Neurologic/Psychiatric: alert, oriented x 3 Skin: normal color, warm/dry Lymphatic: no adenopathy (neck, axilla or supraclavicular) Data Review Labs Laboratory Tests 10/04/20 13:42: Lab Scanned Report Transfusion Reaction Form 10/05/20 05:03: White Blood Count 0.6*L, Red Blood Count 2.63L, Hemoglobin 7.9L, Hematocrit 24L, Mean Corpuscular Volume 91, Mean Corpuscular Hemoglobin 30, Mean Corpuscular Hemoglobin Concent 33, Red Cell Distribution Width 17.9H, Platelet Count 31*L, Mean Platelet Volume 10.5, Immature Granulocyte % (Auto) 8, Neutrophils (%) (Auto) 49, Lymphocytes (%) (Auto) 8L, Monocytes (%) (Auto) 31H, Eosinophils (%) (Auto) 2, Basophils (%) (Auto) 2, Neutrophils # (Auto) 0.3L, Lymphocytes # (Auto) 0.1L, Monocytes # (Auto) 0.2, Eosinophils # (Auto) 0.0, Basophils # (Auto) 0.0, Immature Granulocyte # (Auto) 0.1, Percent Immature Platelet Fraction 4.4, Sodium Level 134L, Potassium Level 3.5L, Chloride Level 107, Carbon Dioxide Level 16L, Anion Gap 11, Blood Urea Nitrogen 20H, Creatinine 1.31H, Estimat Glomerular Filtration Rate 40, BUN/Creatinine Ratio 15, Glucose Level 92, Calcium Level 8.4L, Corrected Calcium 9.8, Total Bilirubin 1.1H, Aspartate Amino Transf (AST/SGOT) 7, Alanine Aminotransferase (ALT/SGPT) 8, Alkaline Phosphatase 67, Total Protein 5.0L, Albumin 2.3L Microbiology 10/03/20 Blood Culture - Preliminary, Resulted No growth 10/03/20 Urine Culture - Final, Complete NO GROWTH Assessment/Plan Assessment/Plan Assessment/Plan Non-functioning port Severe dehydration Acute renal failure UTI Hyponatremia Hypokalemia IV fluids, pain control, replace electrolytes, continue silver sulfadene to affected area (and lidocaine cream if needed). Ordered a stefan-gram last night, hopefully should be done today. She may need something to help breakdown clots in the catheter or she may need the port replaced or flipped over. ROSANA HERRMANN DO Oct 05, 2020 09:47
[2020-10-05] MEDS: BENZOCAINE 20% ORAL GEL (ORALJEL MAX ST) MM SCH ×4 (11:18→23:10)
[2020-10-05] MEDS: VALACYCLOVIR 500 MG TAB (VALTREX) PO SCH ×2 (11:30→20:28)
[2020-10-05] MEDS: SILVER SULFADIAZINE 400 GM CREAM TOP SCH ×3 (11:31→21:36)
[2020-10-05] MEDS ORDERED: IOHEXOL 240 MGI/ML 50 ML (OMNIPAQUE) VIAL IV ONE (16:30)
--- NOTE | 2020-10-05 16:35 | Diagnostic Imaging Report ---
INDICATION: Evaluate port patency. TECHNIQUE: The patient was brought to the procedure room and placed on the table in the supine position. The patient's right chest wall port was already accessed by nursing. We were unable to aspirate blood but saline did flush easily. Approximately 35 cc of Omnipaque 240 contrast was injected under fluoroscopic observation. A total of 44 seconds of fluoroscopic time was utilized. Four images were obtained. FINDINGS: Images demonstrate a right chest wall port with the tip overlying the upper SVC. Contrast flows freely through the port tubing and out the catheter tip in the SVC. There does appear to be some collection of contrast along the outside of the port which would extend upwards towards the loop of the port in the lower neck. Findings are consistent with a fibrin sheath surrounding the port. No interruption or fracture of the port tubing is seen. There is no hole or evidence of extravasation. IMPRESSION: Patent right chest wall port. There does appear to be a fibrin sheath along the distal portion of the port. Dictated by: Dictated on workstation # [id number]
[2020-10-06] MEDS: NS IV 1000 ML 1,000 ML IV SCH (01:59)
[2020-10-06] MEDS: LIDOCAINE JELLY 2% 6 ML SYRINGE TOP SCH ×5 (02:38→19:59)
[2020-10-06] MEDS: BENZOCAINE 20% ORAL GEL (ORALJEL MAX ST) MM SCH ×5 (03:08→19:58)
[2020-10-06 03:39] VITALS: BP 111/69
[2020-10-06] MEDS: CEFEPIME 1,000 MG/SWFI 10 ML IV PUSH IV SCH ×6 (06:15→19:59)
[2020-10-06] MEDS: DIPHENOXYLATE/ATROPINE 2.5MG/0.025MG (LOMOTIL) TAB PO SCH ×3 (06:15→16:33)
[2020-10-06 06:47] LABS: HEMOGLOBIN 7.6 g/dL (11.5-16.0)
[2020-10-06 06:49] LABS: BASOPHILS % (AUTO) 1 % (0-10); EOSINOPHILS % (AUTO) 2 % (0-10); HEMATOCRIT 24 % (35-52); LYMPHOCYTES # (AUTO) 0.1 10^3/uL (1.0-4.0); LYMPHOCYTES % (AUTO) 11 % (12-44); MEAN CORPUSCULAR HEMOGLOBIN 30 pg (25-34); MEAN CORPUSCULAR HGB CONC 32 g/dL (32-36); MEAN CORPUSCULAR VOLUME 93 fL (80-99); MEAN PLATELET VOLUME 10.1 fL (9.0-12.2); MONOCYTES # (AUTO) 0.3 10^3/uL (0.0-1.0); MONOCYTES % (AUTO) 34 % (0-12); NEUTROPHILS # (AUTO) 0.4 10^3/uL (1.8-7.8); NEUTROPHILS % (AUTO) 50 % (42-75)
[2020-10-06 06:53] LABS: PLATELET COUNT 31 10^3/uL (130-400); WHITE BLOOD COUNT 0.9 10^3/uL (4.3-11.0)
[2020-10-06 07:05] LABS: ALANINE AMINOTRANSFERASE 9 U/L (0-55); ALKALINE PHOSPHATASE 59 U/L (40-136); BILIRUBIN,TOTAL 0.9 MG/DL (0.1-1.0); BUN/CREATININE RATIO 15; CARBON DIOXIDE 15 MMOL/L (21-32); CHLORIDE 110 MMOL/L (98-107); CREATININE SERUM 0.72 MG/DL (0.60-1.30); GFR ESTIMATED > 60; GLUCOSE 91 MG/DL (70-105); POTASSIUM 3.2 MMOL/L (3.6-5.0); SODIUM 135 MMOL/L (135-145); TOTAL PROTEIN 4.7 GM/DL (6.4-8.2)
--- NOTE | 2020-10-06 08:19 | Progress Note ---
Subjective Subjective Date Seen by Provider: Oct 06, 2020 Time Seen by Provider: 08:10 PT IS A 75 Y/O FEMALE WHO IS KNOWN TO ME FROM CLINIC. SHE HAS RENAL FAILURE, DEHYDRATION AND SEVERE DEMAR-PAIN. Review of Systems General: No Chills; Fatigue HEENT: No Visual Changes Pulmonary: No Dyspnea, No Cough Cardiovascular: Other (PAIN IN PORT SITE); No: Chest Pain Gastrointestinal: Diarrhea; No: Nausea, Abdominal Pain Genitourinary: Other (OLIVA) Neurological: Weakness; No: Confusion All Other Systems Reviewed All Other Systems Reviewed: Yes Objective Exam Vital Signs Vital Signs - First Documented 10/03/20 10/03/20 15:27 17:13 Temp 36.5 Pulse 79 Resp 24 B/P (MAP) 118/59 (78) Pulse Ox 95 O2 Delivery Nasal Cannula O2 Flow Rate 2.00 Capillary Refill : Less Than 3 Seconds General Appearance: No Apparent Distress, WD/WN Eyes: Bilateral Eye PERRL, Bilateral Eye EOMI HEENT: PERRL/EOMI, Pharynx Normal Neck: Full Range of Motion, Non Tender, Supple Respiratory: Chest Non Tender, Lungs Clear, Normal Breath Sounds Cardiovascular: Regular Rate, Rhythm, Normal Peripheral Pulses Gastrointestinal: Normal Bowel Sounds, Non Tender Genital/Rectal: Other (DENUDED SKIN OF VAGINAL TISSUE AND PERINEAL TISSUE) Extremity: Normal Capillary Refill, No Calf Tenderness, No Pedal Edema Neurologic/Psychiatric: Alert, Oriented x3, No Motor/Sensory Deficits, 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 Skin: Normal Color, Warm/Dry Lymphatic: No Adenopathy Results Lab Laboratory Tests 10/06/20 06:27: White Blood Count 0.9*L, Red Blood Count 2.53L, Hemoglobin 7.6L, Hematocrit 24L, Mean Corpuscular Volume 93, Mean Corpuscular Hemoglobin 30, Mean Corpuscular Hemoglobin Concent 32, Red Cell Distribution Width 18.4H, Platelet Count 31*L, Mean Platelet Volume 10.1, Immature Granulocyte % (Auto) 2, Neutrophils (%) (Auto) 50, Lymphocytes (%) (Auto) 11L, Monocytes (%) (Auto) 34H, Eosinophils (%) (Auto) 2, Basophils (%) (Auto) 1, Neutrophils # (Auto) 0.4L, Lymphocytes # (Auto) 0.1L, Monocytes # (Auto) 0.3, Eosinophils # (Auto) 0.0, Basophils # (Auto) 0.0, Immature Granulocyte # (Auto) 0.0, Percent Immature Platelet Fraction 3.3, Sodium Level 135, Potassium Level 3.2L, Chloride Level 110H, Carbon Dioxide Level 15L, Anion Gap 10, Blood Urea Nitrogen 11, Creatinine 0.72, Estimat Glomerular Filtration Rate > 60, BUN/Creatinine Ratio 15, Glucose Level 91, Calcium Level 8.0L, Corrected Calcium 9.6, Total Bilirubin 0.9, Aspartate Amino Transf (AST/SGOT) 6, Alanine Aminotransferase (ALT/SGPT) 9, Alkaline Phosphatase 59, Total Protein 4.7L, Albumin 2.0L Microbiology 10/03/20 Blood Culture - Preliminary, Resulted No growth 10/03/20 Urine Culture - Final, Complete NO GROWTH Assessment/Plan Assessment/Plan Admission Dx SEVERE DEHYDRATION ACUTE RENAL FAILURE ACUTE LIVER FAILURE DUE TO SHOCK HX OF RECTAL CARCINOMA URINARY TRACT INFECTION HYPONATREMIA HYPERBILIRUBINEMIA SEVERE DEHYDRATION - WITH ACUTE RENAL FAILURE - IV FLUIDS - CONTINUE AT 125ML/HR, MONITOR LABS, PT IMPROVING FROM A RENAL STANDPOINT ACUTE LIVER FAILURE DUE TO SHOCK - IMPROVING HX OF RECTAL CARCINOMA - SUPPORTIVE CARE ONLY AT THIS TIME. URINARY TRACT INFECTION - CONTINUE WITH IV ANTIBIOTICS - CULTURE REPORT PENDING HYPONATREMIA - REPLACED WITH HYPERTONIC SALINE - CONTINUE WITH NORMAL SALINE AT THIS TIME, MONITOR LABS HYPERBILIRUBINEMIA DIARRHEA - CONTINUE WITH IV FLUIDS - CONTINUE WITH LOMOTIL Assessment and Plan SEVERE DEHYDRATION ACUTE RENAL FAILURE ACUTE LIVER FAILURE DUE TO SHOCK HX OF RECTAL CARCINOMA URINARY TRACT INFECTION HYPONATREMIA HYPERBILIRUBINEMIA SEVERE DEHYDRATION - WITH ACUTE RENAL FAILURE - IV FLUIDS - CONTINUE AT 125ML/HR, MONITOR LABS, PT IMPROVING FROM A RENAL STANDPOINT ACUTE LIVER FAILURE DUE TO SHOCK - IMPROVING HX OF RECTAL CARCINOMA - SUPPORTIVE CARE ONLY AT THIS TIME. URINARY TRACT INFECTION - CONTINUE WITH IV ANTIBIOTICS - CULTURE REPORT NEGATIVE HYPONATREMIA - REPLACED WITH HYPERTONIC SALINE - CONTINUE WITH NORMAL SALINE AT THIS TIME, MONITOR LABS HYPERBILIRUBINEMIA DIARRHEA - CONTINUE WITH IV FLUIDS - CONTINUE WITH LOMOTIL, START QUESTRAN Admission Dx SEVERE DEHYDRATION ACUTE RENAL FAILURE ACUTE LIVER FAILURE DUE TO SHOCK HX OF RECTAL CARCINOMA URINARY TRACT INFECTION HYPONATREMIA HYPERBILIRUBINEMIA SEVERE DEHYDRATION - WITH ACUTE RENAL FAILURE - IV FLUIDS - CONTINUE AT 125ML/HR, MONITOR LABS, PT IMPROVING FROM A RENAL STANDPOINT ACUTE LIVER FAILURE DUE TO SHOCK - IMPROVING HX OF RECTAL CARCINOMA - SUPPORTIVE CARE ONLY AT THIS TIME. URINARY TRACT INFECTION - CONTINUE WITH IV ANTIBIOTICS - CULTURE REPORT PENDING HYPONATREMIA - REPLACED WITH HYPERTONIC SALINE - CONTINUE WITH NORMAL SALINE AT THIS TIME, MONITOR LABS HYPERBILIRUBINEMIA DIARRHEA - CONTINUE WITH IV FLUIDS - CONTINUE WITH LOMOTIL Clinical Quality Measures Admission Status Admission Dx SEVERE DEHYDRATION ACUTE RENAL FAILURE ACUTE LIVER FAILURE DUE TO SHOCK HX OF RECTAL CARCINOMA URINARY TRACT INFECTION HYPONATREMIA HYPERBILIRUBINEMIA SEVERE DEHYDRATION - WITH ACUTE RENAL FAILURE - IV FLUIDS - CONTINUE AT 125ML/HR, MONITOR LABS, PT IMPROVING FROM A RENAL STANDPOINT ACUTE LIVER FAILURE DUE TO SHOCK - IMPROVING HX OF RECTAL CARCINOMA - SUPPORTIVE CARE ONLY AT THIS TIME. URINARY TRACT INFECTION - CONTINUE WITH IV ANTIBIOTICS - CULTURE REPORT PENDING HYPONATREMIA - REPLACED WITH HYPERTONIC SALINE - CONTINUE WITH NORMAL SALINE AT THIS TIME, MONITOR LABS HYPERBILIRUBINEMIA DIARRHEA - CONTINUE WITH IV FLUIDS - CONTINUE WITH LOMOTIL RANJITH HOUSE MD Oct 06, 2020 08:19
[2020-10-06 08:45] VITALS: BP 116/71
[2020-10-06] MEDS: NS W/KCL 20 MEQ/L 1,000 ML IV SCH ×3 (09:10→21:29)
[2020-10-06] MEDS: DICYCLOMINE 10 MG (BENTYL) CAP PO SCH ×4 (09:10→19:58)
[2020-10-06] MEDS: SILVER SULFADIAZINE 400 GM CREAM TOP SCH ×4 (09:10→19:58)
[2020-10-06] MEDS: VALACYCLOVIR 500 MG TAB (VALTREX) PO SCH ×2 (09:10→19:57)
[2020-10-06] MEDS: fentaNYL INJ 100 MCG/2 ML AMP IVP PRN ×3 (09:18→20:11)
[2020-10-06] MEDS: CHOLESTYRAMINE 4 GM (QUESTRAN LITE, PREVALITE) PKT PO SCH (10:39)
[2020-10-06 12:29] VITALS: BP 131/81
[2020-10-06] MEDS ORDERED: ALTEPLASE 2 MG (CATHFLO) IV NR (13:00)
[2020-10-06] MEDS: PHENAZOPYRIDINE 100 MG (PYRIDIUM) TABLET PO SCH ×2 (13:49→19:57)
[2020-10-06] MEDS: NYSTATIN ORAL SUSP 5 ML UDC PO SCH ×2 (13:49→18:23)
[2020-10-06 16:00] VITALS: BP 151/69
--- NOTE | 2020-10-06 16:14 | Progress Note - Surgery ---
Subjective Time Seen by a Provider: 13:41 Subjective/Events-last exam Pt seen and examined, no new complaints. Nurse states PICC line nurse able to draw blood out today. Pt got Cathflow last night. Review of Systems General: Fatigue, Malaise Pulmonary: No Dyspnea, No Cough Cardiovascular: No: Chest Pain, Palpitations Gastrointestinal: No: Nausea, Vomiting Genitourinary: Dysuria Focused Exam Lactate Level 10/03/20 19:00: Lactic Acid Level 1.38 Objective Exam Vital Signs Date Time Temp Pulse Resp B/P (MAP) Pulse Ox O2 Delivery O2 Flow Rate FiO2 10/06/20 12:29 36.5 73 19 131/81 (98) 97 Room Air 10/06/20 08:45 36.8 73 19 116/71 (86) 97 Room Air 10/06/20 08:00 Room Air 10/06/20 03:39 36.3 80 20 111/69 (83) 95 Room Air 10/05/20 23:30 36.0 72 18 159/70 (99) 95 Room Air 10/05/20 20:00 Room Air 10/05/20 20:00 36.0 89 20 115/64 (81) 99 Room Air I & O 10/06/20 07:00 Intake Total 400 ml Output Total 1875 ml Balance -1475 ml Capillary Refill : Less Than 3 Seconds General Appearance: Other (pt appears ill) HEENT: PERRL/EOMI; No Moist Mucous Membranes Neck: Supple Respiratory: Chest Non Tender, Lungs Clear, Normal Breath Sounds Cardiovascular: Regular Rate, Rhythm, Normal Peripheral Pulses Gastrointestinal: non tender, soft, no organomegaly Neurologic/Psychiatric: Alert Results Lab Laboratory Tests 10/06/20 06:27: White Blood Count 0.9*L, Red Blood Count 2.53L, Hemoglobin 7.6L, Hematocrit 24L, Mean Corpuscular Volume 93, Mean Corpuscular Hemoglobin 30, Mean Corpuscular Hemoglobin Concent 32, Red Cell Distribution Width 18.4H, Platelet Count 31*L, Mean Platelet Volume 10.1, Immature Granulocyte % (Auto) 2, Neutrophils (%) (Auto) 50, Lymphocytes (%) (Auto) 11L, Monocytes (%) (Auto) 34H, Eosinophils (%) (Auto) 2, Basophils (%) (Auto) 1, Neutrophils # (Auto) 0.4L, Lymphocytes # (Auto) 0.1L, Monocytes # (Auto) 0.3, Eosinophils # (Auto) 0.0, Basophils # (Auto) 0.0, Immature Granulocyte # (Auto) 0.0, Percent Immature Platelet Fraction 3.3, Sodium Level 135, Potassium Level 3.2L, Chloride Level 110H, Carbon Dioxide Level 15L, Anion Gap 10, Blood Urea Nitrogen 11, Creatinine 0.72, Estimat Glomerular Filtration Rate > 60, BUN/Creatinine Ratio 15, Glucose Level 91, Calcium Level 8.0L, Corrected Calcium 9.6, Total Bilirubin 0.9, Aspartate Amino Transf (AST/SGOT) 6, Alanine Aminotransferase (ALT/SGPT) 9, Alkaline Phosphatase 59, Total Protein 4.7L, Albumin 2.0L Microbiology 10/03/20 Blood Culture - Preliminary, Resulted No growth 10/03/20 Urine Culture - Final, Complete NO GROWTH Assessment/Plan Assessment/Plan Assessment/Plan Non-functioning port - resolved Severe dehydration Acute renal failure UTI Hyponatremia Hypokalemia IV fluids, pain control, replace electrolytes, continue silver sulfadene to affected area (and lidocaine cream if needed). Sari-gram showed functioning port with probable fibrin sheath; Cathflow used and port appears to be functioning now. I will sign off and reconsult if needed. ROSANA HERRMANN DO Oct 06, 2020 16:14
[2020-10-06 19:30] VITALS: BP 152/79
[2020-10-06 23:30] VITALS: BP 131/81
[2020-10-07] MEDS: LIDOCAINE JELLY 2% 6 ML SYRINGE TOP SCH ×7 (00:16→22:18)
[2020-10-07] MEDS: BENZOCAINE 20% ORAL GEL (ORALJEL MAX ST) MM SCH ×7 (00:16→23:49)
[2020-10-07] MEDS: NYSTATIN ORAL SUSP 5 ML UDC PO SCH ×5 (00:16→23:49)
[2020-10-07 03:33] VITALS: BP 118/59
[2020-10-07] MEDS: CEFEPIME 1,000 MG/SWFI 10 ML IV PUSH IV SCH ×6 (05:41→19:51)
[2020-10-07] MEDS: DIPHENOXYLATE/ATROPINE 2.5MG/0.025MG (LOMOTIL) TAB PO SCH ×4 (05:42→19:50)
[2020-10-07] MEDS: fentaNYL INJ 100 MCG/2 ML AMP IVP PRN ×5 (06:11→18:44)
[2020-10-07 06:31] LABS: HEMOGLOBIN 7.7 g/dL (11.5-16.0)
[2020-10-07 06:33] LABS: BASOPHILS % (AUTO) 0 % (0-10); EOSINOPHILS % (AUTO) 1 % (0-10); HEMATOCRIT 23 % (35-52); LYMPHOCYTES # (AUTO) 0.2 10^3/uL (1.0-4.0); LYMPHOCYTES % (AUTO) 18 % (12-44); MEAN CORPUSCULAR HEMOGLOBIN 30 pg (25-34); MEAN CORPUSCULAR HGB CONC 34 g/dL (32-36); MEAN CORPUSCULAR VOLUME 90 fL (80-99); MEAN PLATELET VOLUME 10.8 fL (9.0-12.2); MONOCYTES # (AUTO) 0.4 10^3/uL (0.0-1.0); MONOCYTES % (AUTO) 37 % (0-12); NEUTROPHILS # (AUTO) 0.5 10^3/uL (1.8-7.8); NEUTROPHILS % (AUTO) 40 % (42-75)
[2020-10-07 06:39] LABS: PLATELET COUNT 33 10^3/uL (130-400); WHITE BLOOD COUNT 1.2 10^3/uL (4.3-11.0)
[2020-10-07 07:09] LABS: ALANINE AMINOTRANSFERASE 6 U/L (0-55); ALKALINE PHOSPHATASE 61 U/L (40-136); BUN/CREATININE RATIO 12; CALCIUM 7.7 MG/DL (8.5-10.1); CARBON DIOXIDE 15 MMOL/L (21-32); CHLORIDE 108 MMOL/L (98-107); CREATININE SERUM 0.65 MG/DL (0.60-1.30); GFR ESTIMATED > 60; GLUCOSE 88 MG/DL (70-105); POTASSIUM 3.2 MMOL/L (3.6-5.0); SODIUM 133 MMOL/L (135-145); TOTAL PROTEIN 4.4 GM/DL (6.4-8.2)
[2020-10-07] MEDS: NS W/KCL 20 MEQ/L 1,000 ML IV SCH (07:42)
[2020-10-07 07:51] VITALS: BP 146/75
[2020-10-07] MEDS ORDERED: KCL 20 MEQ TAB (K-DUR) PO ONE (09:15)
[2020-10-07] MEDS: VALACYCLOVIR 500 MG TAB (VALTREX) PO SCH ×2 (09:44→19:50)
[2020-10-07] MEDS: PHENAZOPYRIDINE 100 MG (PYRIDIUM) TABLET PO SCH ×3 (09:44→18:00)
[2020-10-07] MEDS: CHOLESTYRAMINE 4 GM (QUESTRAN LITE, PREVALITE) PKT PO SCH ×2 (09:44→19:50)
[2020-10-07] MEDS: DICYCLOMINE 10 MG (BENTYL) CAP PO SCH ×4 (09:44→19:50)
[2020-10-07] MEDS: SILVER SULFADIAZINE 400 GM CREAM TOP SCH ×4 (09:51→19:52)
[2020-10-07 12:29] VITALS: BP 131/68
[2020-10-07] MEDS: DIPHENOXYLATE/ATROPINE 2.5MG/0.025MG (LOMOTIL) TAB PO PRN (13:47)
[2020-10-07] MEDS ORDERED: CHOLESTYRAMINE 4 GM (QUESTRAN LITE, PREVALITE) PKT PO NR (14:30)
[2020-10-07 15:31] VITALS: BP 128/92
[2020-10-07 20:00] VITALS: BP 132/75
[2020-10-08] VITALS (7 sets, daily range): BP systolic 113–157; BP diastolic 60–83
[2020-10-08] MEDS: NS W/KCL 20 MEQ/L 1,000 ML IV SCH ×3 (04:00→16:57)
[2020-10-08] MEDS: LIDOCAINE JELLY 2% 6 ML SYRINGE TOP SCH ×6 (04:01→23:46)
[2020-10-08] MEDS: BENZOCAINE 20% ORAL GEL (ORALJEL MAX ST) MM SCH ×6 (04:01→23:46)
[2020-10-08] MEDS: KCL 10 MEQ TAB (MICRO K) PO SCH (06:11)
[2020-10-08] MEDS: NYSTATIN ORAL SUSP 5 ML UDC PO SCH ×4 (06:11→23:46)
[2020-10-08 06:20] LABS: EOSINOPHILS % (AUTO) 1 % (0-10); HEMATOCRIT 21 % (35-52)
[2020-10-08 06:22] LABS: BASOPHILS % (AUTO) 0 % (0-10); LYMPHOCYTES # (AUTO) 0.3 10^3/uL (1.0-4.0); LYMPHOCYTES % (AUTO) 18 % (12-44); MEAN CORPUSCULAR HEMOGLOBIN 30 pg (25-34); MEAN CORPUSCULAR HGB CONC 33 g/dL (32-36); MEAN CORPUSCULAR VOLUME 92 fL (80-99); MEAN PLATELET VOLUME 10.6 fL (9.0-12.2); MONOCYTES # (AUTO) 0.5 10^3/uL (0.0-1.0); MONOCYTES % (AUTO) 28 % (0-12); NEUTROPHILS # (AUTO) 0.8 10^3/uL (1.8-7.8); NEUTROPHILS % (AUTO) 46 % (42-75); PLATELET COUNT 44 10^3/uL (130-400); WHITE BLOOD COUNT 1.6 10^3/uL (4.3-11.0)
[2020-10-08 06:33] LABS: ALBUMIN 1.9 GM/DL (3.2-4.5); CHLORIDE 107 MMOL/L (98-107); POTASSIUM 3.5 MMOL/L (3.6-5.0); SODIUM 133 MMOL/L (135-145)
[2020-10-08 06:34] LABS: CALCIUM 7.3 MG/DL (8.5-10.1)
[2020-10-08 06:35] LABS: GLUCOSE 87 MG/DL (70-105); TOTAL PROTEIN 4.6 GM/DL (6.4-8.2)
[2020-10-08 06:36] LABS: CARBON DIOXIDE 16 MMOL/L (21-32)
[2020-10-08 06:37] LABS: BILIRUBIN,TOTAL 0.7 MG/DL (0.1-1.0)
[2020-10-08 06:39] LABS: ALKALINE PHOSPHATASE 49 U/L (40-136); CREATININE SERUM 0.59 MG/DL (0.60-1.30); GFR ESTIMATED > 60
[2020-10-08 06:40] LABS: BUN/CREATININE RATIO 10
[2020-10-08 06:42] LABS: ALANINE AMINOTRANSFERASE 6 U/L (0-55)
[2020-10-08] MEDS: SILVER SULFADIAZINE 400 GM CREAM TOP SCH ×4 (06:52→20:29)
[2020-10-08] MEDS: DICYCLOMINE 10 MG (BENTYL) CAP PO SCH ×4 (08:36→20:24)
[2020-10-08] MEDS: PHENAZOPYRIDINE 100 MG (PYRIDIUM) TABLET PO SCH ×3 (08:36→18:15)
[2020-10-08] MEDS: VALACYCLOVIR 500 MG TAB (VALTREX) PO SCH ×2 (08:36→20:24)
[2020-10-08] MEDS: fentaNYL INJ 100 MCG/2 ML AMP IVP PRN ×2 (08:36→23:54)
[2020-10-08] MEDS: DIPHENOXYLATE/ATROPINE 2.5MG/0.025MG (LOMOTIL) TAB PO SCH ×4 (08:36→20:24)
[2020-10-08] MEDS: CHOLESTYRAMINE 4 GM (QUESTRAN LITE, PREVALITE) PKT PO SCH ×3 (08:37→20:29)
[2020-10-08] MEDS ORDERED: NS IV 500 ML 500 ML IV SCH ×2 (09:45)
[2020-10-08] MEDS ORDERED: FUROSEMIDE 40 MG/4 ML INJ (LASIX) IVP NR (10:00)
--- NOTE | 2020-10-08 12:02 | Progress Note ---
Subjective Subjective Date Seen by Provider: Oct 07, 2020 Time Seen by Provider: 08:45 LATE ENTRY NOTE - PT SEEN ON 10/07/2020 PT IS A 75 Y/O FEMALE WHO IS KNOWN TO ME FROM CLINIC. SHE HAS RENAL FAILURE, DEHYDRATION AND SEVERE DEMAR-PAIN. SHE STATES THAT SHE IS FEELING A LITTLE BETTER, STILL HAVING PAIN, DIARRHEA IMPR HARRY WITH QUESTRAN, BUT PICKED UP BACK UP THIS MORNING Review of Systems General: No Chills; Fatigue HEENT: No Visual Changes Pulmonary: No Dyspnea, No Cough Cardiovascular: Other (PAIN IN PORT SITE); No: Chest Pain Gastrointestinal: Diarrhea; No: Nausea, Abdominal Pain Genitourinary: Other (OLIVA) Neurological: Weakness; No: Confusion All Other Systems Reviewed All Other Systems Reviewed: Yes Objective Exam Vital Signs Vital Signs - First Documented 10/03/20 10/03/20 15:27 17:13 Temp 36.5 Pulse 79 Resp 24 B/P (MAP) 118/59 (78) Pulse Ox 95 O2 Delivery Nasal Cannula O2 Flow Rate 2.00 Capillary Refill : Less Than 3 Seconds General Appearance: No Apparent Distress, WD/WN Eyes: Bilateral Eye PERRL, Bilateral Eye EOMI HEENT: PERRL/EOMI, Pharynx Normal Neck: Full Range of Motion, Non Tender, Supple Respiratory: Chest Non Tender, Lungs Clear, Normal Breath Sounds Cardiovascular: Regular Rate, Rhythm, Normal Peripheral Pulses Gastrointestinal: Normal Bowel Sounds, Non Tender Genital/Rectal: Other (DENUDED SKIN OF VAGINAL TISSUE AND PERINEAL TISSUE) Extremity: Normal Capillary Refill, No Calf Tenderness, No Pedal Edema Neurologic/Psychiatric: Alert, Oriented x3, No Motor/Sensory Deficits, 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 Skin: Normal Color, Warm/Dry Lymphatic: No Adenopathy Results Lab Laboratory Tests 10/08/20 06:15: White Blood Count 1.6L, Red Blood Count 2.34L, Hemoglobin 7.0L, Hematocrit 21L, Mean Corpuscular Volume 92, Mean Corpuscular Hemoglobin 30, Mean Corpuscular Hemoglobin Concent 33, Red Cell Distribution Width 18.6H, Platelet Count 44L, Mean Platelet Volume 10.6, Immature Granulocyte % (Auto) 7, Neutrophils (%) (Auto) 46, Lymphocytes (%) (Auto) 18, Monocytes (%) (Auto) 28H, Eosinophils (%) (Auto) 1, Basophils (%) (Auto) 0, Neutrophils # (Auto) 0.8L, Lymphocytes # (Auto) 0.3L, Monocytes # (Auto) 0.5, Eosinophils # (Auto) 0.0, Basophils # (Auto) 0.0, Immature Granulocyte # (Auto) 0.1, Percent Immature Platelet Fraction 4.5, Sodium Level 133L, Potassium Level 3.5L, Chloride Level 107, Carbon Dioxide Level 16L, Anion Gap 10, Blood Urea Nitrogen 6L, Creatinine 0.59L , Estimat Glomerular Filtration Rate > 60, BUN/Creatinine Ratio 10, Glucose Level 87, Calcium Level 7.3L, Corrected Calcium 9.0, Total Bilirubin 0.7, Aspartate Amino Transf (AST/SGOT) 8, Alanine Aminotransferase (ALT/SGPT) 6, Alkaline Phosphatase 49, Total Protein 4.6L, Albumin 1.9L Microbiology 10/03/20 Blood Culture - Preliminary, Resulted No growth 10/03/20 Urine Culture - Final, Complete NO GROWTH Assessment/Plan Assessment/Plan Admission Dx SEVERE DEHYDRATION ACUTE RENAL FAILURE ACUTE LIVER FAILURE DUE TO SHOCK HX OF RECTAL CARCINOMA URINARY TRACT INFECTION HYPONATREMIA HYPERBILIRUBINEMIA SEVERE DEHYDRATION - WITH ACUTE RENAL FAILURE - IV FLUIDS - CONTINUE AT 125ML/HR, MONITOR LABS, PT IMPROVING FROM A RENAL STANDPOINT ACUTE LIVER FAILURE DUE TO SHOCK - IMPROVING HX OF RECTAL CARCINOMA - SUPPORTIVE CARE ONLY AT THIS TIME. URINARY TRACT INFECTION - CONTINUE WITH IV ANTIBIOTICS - CULTURE REPORT PENDING HYPONATREMIA - REPLACED WITH HYPERTONIC SALINE - CONTINUE WITH NORMAL SALINE AT THIS TIME, MONITOR LABS HYPERBILIRUBINEMIA DIARRHEA - CONTINUE WITH IV FLUIDS - CONTINUE WITH LOMOTIL Assessment and Plan SEVERE DEHYDRATION ACUTE RENAL FAILURE ACUTE LIVER FAILURE DUE TO SHOCK HX OF RECTAL CARCINOMA URINARY TRACT INFECTION HYPONATREMIA HYPERBILIRUBINEMIA SEVERE DEHYDRATION - WITH ACUTE RENAL FAILURE - IV FLUIDS - CONTINUE WITH IV FLUIDS, MONITOR LABS, PT IMPROVING FROM A RENAL STANDPOINT ACUTE LIVER FAILURE DUE TO SHOCK - IMPROVING STATUS POST FLUIDS. HX OF RECTAL CARCINOMA - SUPPORTIVE CARE ONLY AT THIS TIME. URINARY TRACT INFECTION - CONTINUE WITH IV ANTIBIOTICS - WILL FINISH OUT IV ANTIBIOTICS - CULTURE REPORT NEGATIVE HYPONATREMIA - REPLACED WITH HYPERTONIC SALINE - CONTINUE WITH NORMAL SALINE AT THIS TIME, MONITOR LABS HYPERBILIRUBINEMIA DIARRHEA - CONTINUE WITH IV FLUIDS - CONTINUE WITH LOMOTIL, STARTED QUESTRAN, ADVANCED DIET - INCREASE QUESTRAN TO 1/2 PACKET TID VAGINAL PAIN/RECTA/PERINEAL PAIN - RX FOR LIDOCAINE GEL TO TISSUE Admission Dx SEVERE DEHYDRATION ACUTE RENAL FAILURE ACUTE LIVER FAILURE DUE TO SHOCK HX OF RECTAL CARCINOMA URINARY TRACT INFECTION HYPONATREMIA HYPERBILIRUBINEMIA SEVERE DEHYDRATION - WITH ACUTE RENAL FAILURE - IV FLUIDS - CONTINUE AT 125ML/HR, MONITOR LABS, PT IMPROVING FROM A RENAL STANDPOINT ACUTE LIVER FAILURE DUE TO SHOCK - IMPROVING HX OF RECTAL CARCINOMA - SUPPORTIVE CARE ONLY AT THIS TIME. URINARY TRACT INFECTION - CONTINUE WITH IV ANTIBIOTICS - CULTURE REPORT PENDING HYPONATREMIA - REPLACED WITH HYPERTONIC SALINE - CONTINUE WITH NORMAL SALINE AT THIS TIME, MONITOR LABS HYPERBILIRUBINEMIA DIARRHEA - CONTINUE WITH IV FLUIDS - CONTINUE WITH LOMOTIL Clinical Quality Measures Admission Status Admission Dx SEVERE DEHYDRATION ACUTE RENAL FAILURE ACUTE LIVER FAILURE DUE TO SHOCK HX OF RECTAL CARCINOMA URINARY TRACT INFECTION HYPONATREMIA HYPERBILIRUBINEMIA SEVERE DEHYDRATION - WITH ACUTE RENAL FAILURE - IV FLUIDS - CONTINUE AT 125ML/HR, MONITOR LABS, PT IMPROVING FROM A RENAL STANDPOINT ACUTE LIVER FAILURE DUE TO SHOCK - IMPROVING HX OF RECTAL CARCINOMA - SUPPORTIVE CARE ONLY AT THIS TIME. URINARY TRACT INFECTION - CONTINUE WITH IV ANTIBIOTICS - CULTURE REPORT PENDING HYPONATREMIA - REPLACED WITH HYPERTONIC SALINE - CONTINUE WITH NORMAL SALINE AT THIS TIME, MONITOR LABS HYPERBILIRUBINEMIA DIARRHEA - CONTINUE WITH IV FLUIDS - CONTINUE WITH LOMOTIL RANJITH HOUSE MD Oct 08, 2020 12:02
[2020-10-08] MEDS ORDERED: NS IV 500 ML 500 ML ONE (12:06)
--- NOTE | 2020-10-08 12:30 | Progress Note ---
Subjective Subjective Date Seen by Provider: Oct 08, 2020 Time Seen by Provider: 10:00 PT IS A 75 Y/O FEMALE WHO IS KNOWN TO ME FROM CLINIC. SHE HAS RENAL FAILURE, DEHYDRATION AND SEVERE DEMAR-PAIN. SHE STATES THAT SHE IS FEELING A LITTLE BETTER, STILL HAVING PAIN, DIARRHEA WITH IMPROVEMENT IN PT'S ABILITY TO GET TO THE RESTROOM RATHER THAN STOOLING IN HER BED AND HAVING BURNING OF VAGINAL AND RECTAL TISSUE. FAMILY CONCERNED ABOUT EDEMA OF LOWER LEGS Review of Systems General: No Chills; Fatigue HEENT: No Visual Changes Pulmonary: No Dyspnea, No Cough Cardiovascular: Edema, Other (PAIN IN PORT SITE); No: Chest Pain Gastrointestinal: Diarrhea (IMPROVING); No: Nausea, Abdominal Pain Genitourinary: Other (OLIVA) Neurological: Weakness; No: Confusion All Other Systems Reviewed All Other Systems Reviewed: Yes Objective Exam Vital Signs Vital Signs - First Documented 10/03/20 10/03/20 15:27 17:13 Temp 36.5 Pulse 79 Resp 24 B/P (MAP) 118/59 (78) Pulse Ox 95 O2 Delivery Nasal Cannula O2 Flow Rate 2.00 Capillary Refill : Less Than 3 Seconds General Appearance: No Apparent Distress, WD/WN Eyes: Bilateral Eye Normal Inspection, Bilateral Eye PERRL, Bilateral Eye EOMI HEENT: PERRL/EOMI Neck: Full Range of Motion, Non Tender, Supple Respiratory: Chest Non Tender, Lungs Clear, Normal Breath Sounds, No Accessory Muscle Use, No Respiratory Distress Cardiovascular: Regular Rate, Rhythm, No Edema, Normal Peripheral Pulses Gastrointestinal: Normal Bowel Sounds, No Organomegaly, No Pulsatile Mass, Non Tender, Soft Genital/Rectal: Other (PINK/BURNED TISSUE WITH SKIN PEELING ON VAGINAL AN PERINEAL TISSUE, EDEMA TO VAGINA) Back: No Vertebral Tenderness Extremity: Normal Capillary Refill, Normal Inspection, Normal Range of Motion, Non Tender, No Calf Tenderness, No Pedal Edema Neurologic/Psychiatric: Alert, Oriented x3, No Motor/Sensory Deficits, 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, 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 Norm as Tested Skin: Other (SEE ABOVE DOCUMENTATION ABOUT BURNED VAGINAL/PERINEAL TISSUE) Lymphatic: No Adenopathy Results Lab Laboratory Tests 10/08/20 06:15: White Blood Count 1.6L, Red Blood Count 2.34L, Hemoglobin 7.0L, Hematocrit 21L, Mean Corpuscular Volume 92, Mean Corpuscular Hemoglobin 30, Mean Corpuscular Hemoglobin Concent 33, Red Cell Distribution Width 18.6H, Platelet Count 44L, Mean Platelet Volume 10.6, Immature Granulocyte % (Auto) 7, Neutrophils (%) (Auto) 46, Lymphocytes (%) (Auto) 18, Monocytes (%) (Auto) 28H, Eosinophils (%) (Auto) 1, Basophils (%) (Auto) 0, Neutrophils # (Auto) 0.8L, Lymphocytes # (Auto) 0.3L, Monocytes # (Auto) 0.5, Eosinophils # (Auto) 0.0, Basophils # (Auto) 0.0, Immature Granulocyte # (Auto) 0.1, Percent Immature Platelet Fraction 4.5, Sodium Level 133L, Potassium Level 3.5L, Chloride Level 107, Carbon Dioxide Level 16L, Anion Gap 10, Blood Urea Nitrogen 6L, Creatinine 0.59L , Estimat Glomerular Filtration Rate > 60, BUN/Creatinine Ratio 10, Glucose Level 87, Calcium Level 7.3L, Corrected Calcium 9.0, Total Bilirubin 0.7, Aspartate Amino Transf (AST/SGOT) 8, Alanine Aminotransferase (ALT/SGPT) 6, Alkaline Phosphatase 49, Total Protein 4.6L, Albumin 1.9L Microbiology 10/03/20 Blood Culture - Preliminary, Resulted No growth 10/03/20 Urine Culture - Final, Complete NO GROWTH Assessment/Plan Assessment/Plan Admission Dx SEVERE DEHYDRATION ACUTE RENAL FAILURE ACUTE LIVER FAILURE DUE TO SHOCK HX OF RECTAL CARCINOMA URINARY TRACT INFECTION HYPONATREMIA HYPERBILIRUBINEMIA Assessment and Plan SEVERE DEHYDRATION ACUTE RENAL FAILURE ACUTE LIVER FAILURE DUE TO SHOCK HX OF RECTAL CARCINOMA URINARY TRACT INFECTION HYPONATREMIA HYPERBILIRUBINEMIA DIARRHEA MOUTH SORES SEVERE DEHYDRATION - WITH ACUTE RENAL FAILURE - IV FLUIDS - CONTINUE WITH IV FLUIDS, MONITOR LABS, PT IMPROVING FROM A RE NAL STANDPOINT ACUTE LIVER FAILURE DUE TO SHOCK - IMPROVING STATUS POST FLUIDS. HX OF RECTAL CARCINOMA - SUPPORTIVE CARE ONLY AT THIS TIME. URINARY TRACT INFECTION - FINISHED IV ANTIBIOTICS HYPONATREMIA - REPLACED WITH HYPERTONIC SALINE - CONTINUE WITH NORMAL SALINE AT THIS TIME, MONITOR LABS, WILL DECREASE FLUIDS DUE TO EDEMA AND IMPROVED SODIUM LEVEL HYPERBILIRUBINEMIA DIARRHEA - CONTINUE WITH IV FLUIDS - CONTINUE WITH LOMOTIL, STARTED QUESTRAN, ADVANCED DIET ( HAVE ORDERED THIS TWICE, BUT IT HAS NOT BEEN CARRIED, OUT, TALKED TO DIETARY TODAY AND HER ADVANCED DIET HAS BEEN CONFIRMED) - INCREASED QUESTRAN TO 1/2 PACKET TID VAGINAL PAIN/RECTA/PERINEAL PAIN - RX FOR LIDOCAINE GEL TO TISSUE HYPOTHYROID - WILL RESTART LEVOTHYROXINE Admission Dx SEVERE DEHYDRATION ACUTE RENAL FAILURE ACUTE LIVER FAILURE DUE TO SHOCK HX OF RECTAL CARCINOMA URINARY TRACT INFECTION HYPONATREMIA HYPERBILIRUBINEMIA Clinical Quality Measures Admission Status Admission Dx SEVERE DEHYDRATION ACUTE RENAL FAILURE ACUTE LIVER FAILURE DUE TO SHOCK HX OF RECTAL CARCINOMA URINARY TRACT INFECTION HYPONATREMIA HYPERBILIRUBINEMIA RANJITH HOUSE MD Oct 08, 2020 12:29
[2020-10-08] MEDS: ONDANSETRON 4 MG/2 ML (SDV) Z0FRAN IVP PRN (14:59)
[2020-10-09] MEDS: NS W/KCL 20 MEQ/L 1,000 ML IV SCH ×3 (05:24→21:39)
[2020-10-09] MEDS: BENZOCAINE 20% ORAL GEL (ORALJEL MAX ST) MM SCH ×5 (06:28→21:28)
[2020-10-09] MEDS: LIDOCAINE JELLY 2% 6 ML SYRINGE TOP SCH ×5 (06:28→21:50)
[2020-10-09] MEDS: LEVOTHYROXINE 100 MCG (LEVOTHROID) TAB PO SCH (06:30)
[2020-10-09] MEDS: NYSTATIN ORAL SUSP 5 ML UDC PO SCH ×3 (06:30→17:19)
[2020-10-09] MEDS: KCL 10 MEQ TAB (MICRO K) PO SCH (06:30)
[2020-10-09 06:48] LABS: BASOPHILS % (AUTO) 1 % (0-10); HEMOGLOBIN 8.9 g/dL (11.5-16.0); MEAN PLATELET VOLUME 10.7 fL (9.0-12.2)
[2020-10-09 06:50] LABS: EOSINOPHILS % (AUTO) 0 % (0-10); HEMATOCRIT 26 % (35-52); LYMPHOCYTES # (AUTO) 0.3 10^3/uL (1.0-4.0); LYMPHOCYTES % (AUTO) 12 % (12-44); MEAN CORPUSCULAR HEMOGLOBIN 30 pg (25-34); MEAN CORPUSCULAR HGB CONC 34 g/dL (32-36); MEAN CORPUSCULAR VOLUME 90 fL (80-99); MONOCYTES # (AUTO) 0.6 10^3/uL (0.0-1.0); MONOCYTES % (AUTO) 22 % (0-12); NEUTROPHILS # (AUTO) 1.5 10^3/uL (1.8-7.8); NEUTROPHILS % (AUTO) 54 % (42-75); PLATELET COUNT 78 10^3/uL (130-400); WHITE BLOOD COUNT 2.8 10^3/uL (4.3-11.0)
[2020-10-09 07:06] LABS: ALBUMIN 2.1 GM/DL (3.2-4.5); CHLORIDE 105 MMOL/L (98-107); POTASSIUM 3.5 MMOL/L (3.6-5.0); SODIUM 134 MMOL/L (135-145)
[2020-10-09 07:07] LABS: CALCIUM 7.5 MG/DL (8.5-10.1)
[2020-10-09 07:08] LABS: GLUCOSE 83 MG/DL (70-105)
[2020-10-09 07:10] LABS: BILIRUBIN,TOTAL 0.7 MG/DL (0.1-1.0); CARBON DIOXIDE 19 MMOL/L (21-32)
[2020-10-09 07:12] LABS: ALKALINE PHOSPHATASE 53 U/L (40-136); CREATININE SERUM 0.57 MG/DL (0.60-1.30); GFR ESTIMATED > 60
[2020-10-09 07:13] LABS: BUN/CREATININE RATIO 9
[2020-10-09 07:15] LABS: ALANINE AMINOTRANSFERASE 7 U/L (0-55)
[2020-10-09 07:31] LABS: BAND NEUTROPHILS 10 %; ELLIPT/OVALOCYTES SLIGHT; LYMPHOCYTES % (MANUAL) 21 %; MONOCYTES % (MANUAL) 16 %; NEUTROPHILS % (MANUAL) 53 %; TOXIC GRANULATION/VACUOLAZATIO 1+
[2020-10-09 07:32] LABS: BURR CELLS SLIGHT
[2020-10-09 07:35] VITALS: BP 138/80
[2020-10-09] MEDS: PHENAZOPYRIDINE 100 MG (PYRIDIUM) TABLET PO SCH ×3 (08:05→17:18)
[2020-10-09] MEDS: VALACYCLOVIR 500 MG TAB (VALTREX) PO SCH ×2 (08:05→21:49)
[2020-10-09] MEDS: DIPHENOXYLATE/ATROPINE 2.5MG/0.025MG (LOMOTIL) TAB PO SCH ×4 (08:05→21:48)
[2020-10-09] MEDS: CHOLESTYRAMINE 4 GM (QUESTRAN LITE, PREVALITE) PKT PO SCH ×3 (08:12→21:48)
[2020-10-09] MEDS: DICYCLOMINE 10 MG (BENTYL) CAP PO SCH ×4 (08:13→21:48)
[2020-10-09] MEDS: SILVER SULFADIAZINE 400 GM CREAM TOP SCH ×4 (08:21→21:49)
[2020-10-09] MEDS: fentaNYL INJ 100 MCG/2 ML AMP IVP PRN ×4 (08:22→21:29)
--- NOTE | 2020-10-09 09:37 | Progress Note ---
Subjective Subjective Date Seen by Provider: Oct 09, 2020 Time Seen by Provider: 11:50 No overnight events. Patient is doing alright. Daughter is present. Perineal swelling is improved. Patient has no questions today. She does note that her arms are bruising Review of Systems General: No Chills; Fatigue HEENT: No Visual Changes Pulmonary: No Dyspnea, No Cough Cardiovascular: Edema; No: Chest Pain Gastrointestinal: Diarrhea (IMPROVING); No: Nausea, Abdominal Pain Genitourinary: Other (OLIVA) Neurological: Weakness; No: Confusion All Other Systems Reviewed All Other Systems Reviewed: Yes Objective Exam Vital Signs Vital Signs Date Time Temp Pulse Resp B/P (MAP) Pulse Ox O2 Delivery O2 Flow Rate FiO2 10/08/20 23:47 36.8 69 20 157/83 (107) 96 Room Air 10/08/20 20:30 Room Air 10/08/20 16:15 37.3 62 20 113/62 (79) 96 Room Air 10/08/20 14:35 37.0 78 130/80 10/08/20 12:46 36.8 76 127/79 10/08/20 12:23 36.8 82 135/82 I & O 10/09/20 07:00 Intake Total 3140 ml Output Total 4500 ml Balance -1360 ml General Appearance: No Apparent Distress, WD/WN Eyes: Bilateral Eye Normal Inspection, Bilateral Eye PERRL, Bilateral Eye EOMI HEENT: PERRL/EOMI Neck: Full Range of Motion, Non Tender, Supple Respiratory: Chest Non Tender, Lungs Clear, Normal Breath Sounds, No Accessory Muscle Use, No Respiratory Distress Cardiovascular: Regular Rate, Rhythm, Normal Peripheral Pulses Gastrointestinal: Normal Bowel Sounds, No Organomegaly, No Pulsatile Mass, Non Tender, Soft Genital/Rectal: Other (labia, perineal swelling appears improved.) Back: No Vertebral Tenderness Extremity: Normal Capillary Refill, Normal Inspection, Normal Range of Motion, Non Tender, No Calf Tenderness, Pedal Edema Neurologic/Psychiatric: Alert, Oriented x3, No Motor/Sensory Deficits, 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, 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 Norm as Tested Skin: Other (SEE ABOVE DOCUMENTATION ABOUT BURNED VAGINAL/PERINEAL TISSUE) Lymphatic: No Adenopathy Results Lab Laboratory Tests 10/09/20 06:40: White Blood Count 2.8L, Red Blood Count 2.94L, Hemoglobin 8.9#L, Hematocrit 26L, Mean Corpuscular Volume 90, Mean Corpuscular Hemoglobin 30, Mean Corpuscular Hemoglobin Concent 34, Red Cell Distribution Width 17.9H, Platelet Count 78L, Mean Platelet Volume 10.7, Immature Granulocyte % (Auto) 11, Neutrophils (%) (Auto) 54, Lymphocytes (%) (Auto) 12, Monocytes (%) (Auto) 22H, Eosinophils (%) (Auto) 0, Basophils (%) (Auto) 1, Neutrophils # (Auto) 1.5L, Lymphocytes # (Auto) 0.3L, Monocytes # (Auto) 0.6, Eosinophils # (Auto) 0.0, Basophils # (Auto) 0.0, Immature Granulocyte # (Auto) 0.3H, Neutrophils % (Manual) 53, Lymphocytes % (Manual) 21, Monocytes % (Manual) 16, Band Neutrophils 10, Toxic Granulation 1+, Dohle Bodies SLIGHT, Percent Immature Platelet Fraction 5.0, Olcott Cells SLIGHT, Elliptocytes SLIGHT, Blood Morphology Comment , Sodium Level 134L, Potassium Level 3.5L, Chloride Level 105, Carbon Dioxide Level 19L, Anion Gap 10, Blood Urea Nitrogen 5L, Creatinine 0.57L, Estimat Glomerular Filtration Rate > 60, BUN/Creatinine Ratio 9, Glucose Level 83, Calcium Level 7.5L, Corrected Calcium 9.0, Total Bilirubin 0.7, Aspartate Amino Transf (AST/SGOT) 10, Alanine Aminotransferase (ALT/SGPT) 7, Alkaline Phosphatase 53, Total Protein 5.0L, Albumin 2.1L Microbiology 10/03/20 Blood Culture - Preliminary, Resulted No growth 10/03/20 Urine Culture - Final, Complete NO GROWTH Assessment/Plan Assessment/Plan Assessment and Plan 10/09/20- continue IVF, monitoring electrolytes, WBC, platelets slowly trending up. Hgb improved with 1pRBC on 10/08/20 (third unit total). Continue with lomotil and cholestyramine for diarrhea. -continue to monitor catheter and perineal edema- Dispo: improving. Problems: (1) Profound anemia Qualifiers: Qualified Codes: D64.9 - Anemia, unspecified (2) Dehydration (3) Acute renal failure (4) Pancytopenia (5) Perineal pain in female (6) Hypothyroid (7) Hyponatremia (8) Hypokalemia (9) History of rectal cancer (10) Diarrhea NESSA BRADFORD MD Oct 09, 2020 09:37
[2020-10-09 12:05] VITALS: BP 118/72
[2020-10-09 16:25] VITALS: BP 123/77
[2020-10-09 23:57] VITALS: BP 138/71
[2020-10-10] MEDS: BENZOCAINE 20% ORAL GEL (ORALJEL MAX ST) MM SCH ×6 (01:01→19:46)
[2020-10-10] MEDS: NYSTATIN ORAL SUSP 5 ML UDC PO SCH ×4 (01:02→17:56)
[2020-10-10] MEDS: LIDOCAINE JELLY 2% 6 ML SYRINGE TOP SCH ×6 (01:02→19:47)
[2020-10-10] MEDS: KCL 10 MEQ TAB (MICRO K) PO SCH (05:46)
[2020-10-10] MEDS: LEVOTHYROXINE 100 MCG (LEVOTHROID) TAB PO SCH (05:46)
[2020-10-10] MEDS: ONDANSETRON 4 MG/2 ML (SDV) Z0FRAN IVP PRN (05:49)
[2020-10-10 06:59] LABS: EOSINOPHILS % (AUTO) 0 % (0-10)
[2020-10-10 07:01] LABS: BASOPHILS % (AUTO) 1 % (0-10); HEMATOCRIT 28 % (35-52); HEMOGLOBIN 9.2 g/dL (11.5-16.0); LYMPHOCYTES # (AUTO) 0.4 10^3/uL (1.0-4.0); LYMPHOCYTES % (AUTO) 10 % (12-44); MEAN CORPUSCULAR HEMOGLOBIN 30 pg (25-34); MEAN CORPUSCULAR HGB CONC 33 g/dL (32-36); MEAN CORPUSCULAR VOLUME 91 fL (80-99); MEAN PLATELET VOLUME 10.1 fL (9.0-12.2); MONOCYTES # (AUTO) 0.6 10^3/uL (0.0-1.0); MONOCYTES % (AUTO) 19 % (0-12); NEUTROPHILS # (AUTO) 1.9 10^3/uL (1.8-7.8); NEUTROPHILS % (AUTO) 57 % (42-75); PLATELET COUNT 110 10^3/uL (130-400); WHITE BLOOD COUNT 3.4 10^3/uL (4.3-11.0)
[2020-10-10 07:18] LABS: ALANINE AMINOTRANSFERASE 9 U/L (0-55); ALBUMIN 2.2 GM/DL (3.2-4.5); ALKALINE PHOSPHATASE 58 U/L (40-136); BILIRUBIN,TOTAL 0.7 MG/DL (0.1-1.0); BUN/CREATININE RATIO 7; CARBON DIOXIDE 16 MMOL/L (21-32); CHLORIDE 106 MMOL/L (98-107); CREATININE SERUM 0.55 MG/DL (0.60-1.30); GFR ESTIMATED > 60; GLUCOSE 93 MG/DL (70-105); POTASSIUM 3.9 MMOL/L (3.6-5.0); SODIUM 132 MMOL/L (135-145); TOTAL PROTEIN 4.9 GM/DL (6.4-8.2)
[2020-10-10] MEDS: NS W/KCL 20 MEQ/L 1,000 ML IV SCH ×2 (07:50→19:48)
[2020-10-10] MEDS: VALACYCLOVIR 500 MG TAB (VALTREX) PO SCH ×2 (07:51→19:47)
[2020-10-10] MEDS: PHENAZOPYRIDINE 100 MG (PYRIDIUM) TABLET PO SCH ×3 (07:51→17:55)
[2020-10-10] MEDS: DIPHENOXYLATE/ATROPINE 2.5MG/0.025MG (LOMOTIL) TAB PO SCH ×4 (07:51→19:47)
[2020-10-10] MEDS: SILVER SULFADIAZINE 400 GM CREAM TOP SCH ×4 (07:52→19:48)
[2020-10-10] MEDS: CHOLESTYRAMINE 4 GM (QUESTRAN LITE, PREVALITE) PKT PO SCH ×3 (07:52→19:29)
[2020-10-10 07:55] VITALS: BP 129/76
[2020-10-10] MEDS: DICYCLOMINE 10 MG (BENTYL) CAP PO SCH ×4 (07:56→19:47)
[2020-10-10] MEDS: fentaNYL INJ 100 MCG/2 ML AMP IVP PRN ×2 (09:54→17:56)
[2020-10-10] MEDS ORDERED: HYDROcodone/APAP 5 MG/325 MG (LORTAB) TAB PO PRN (10:45)
--- NOTE | 2020-10-10 13:18 | Progress Note ---
Subjective Subjective Date Seen by Provider: Oct 10, 2020 Time Seen by Provider: 10:00 No overnight events. Patient is doing alright. She will not use the cholestyramine for her diarrhea due to it inducing vomiting. Stools are starting to form though. She would like something else to help with diarrhea. Denies pain currently but was hurting pretty bad last evening. Nursing report- vaginal/perineal area is significantly improved. Review of Systems General: No Chills; Fatigue HEENT: No Visual Changes Pulmonary: No Dyspnea, No Cough Cardiovascular: Edema; No: Chest Pain Gastrointestinal: Diarrhea (IMPROVING); No: Nausea, Abdominal Pain Genitourinary: Other (OLIVA) Neurological: Weakness; No: Confusion All Other Systems Reviewed All Other Systems Reviewed: Yes Objective Exam Vital Signs Vital Signs Date Time Temp Pulse Resp B/P (MAP) Pulse Ox O2 Delivery O2 Flow Rate FiO2 10/10/20 08:00 Room Air 10/10/20 07:55 36.8 86 18 129/76 (93) 98 Room Air 10/09/20 23:57 37.2 75 18 138/71 (93) 95 Room Air 10/09/20 20:00 97 Room Air 1.00 10/09/20 16:25 36.8 88 20 123/77 (92) 97 Room Air I & O 10/10/20 07:00 Intake Total 1330 ml Output Total 2150 ml Balance -820 ml General Appearance: No Apparent Distress, WD/WN Eyes: Bilateral Eye Normal Inspection, Bilateral Eye PERRL, Bilateral Eye EOMI HEENT: PERRL/EOMI Neck: Full Range of Motion, Non Tender, Supple Respiratory: Chest Non Tender, Lungs Clear, Normal Breath Sounds, No Accessory Muscle Use, No Respiratory Distress Cardiovascular: Regular Rate, Rhythm, Normal Peripheral Pulses Gastrointestinal: Normal Bowel Sounds, No Organomegaly, No Pulsatile Mass, Non Tender, Soft Genital/Rectal: Other (labia, perineal swelling appears improved.) Back: No Vertebral Tenderness Extremity: Normal Capillary Refill, Normal Inspection, Normal Range of Motion, Non Tender, No Calf Tenderness, Pedal Edema (2+ pitting legs) Neurologic/Psychiatric: Alert, Oriented x3, No Motor/Sensory Deficits, 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, stage hand II-XII Norm as Tested Skin: Other (SEE ABOVE DOCUMENTATION ABOUT BURNED VAGINAL/PERINEAL TISSUE) Lymphatic: No Adenopathy Results Lab Laboratory Tests 10/10/20 06:47: White Blood Count 3.4L, Red Blood Count 3.05L, Hemoglobin 9.2L, Hematocrit 28L, Mean Corpuscular Volume 91, Mean Corpuscular Hemoglobin 30, Mean Corpuscular Hemoglobin Concent 33, Red Cell Distribution Width 18.1H, Platelet Count 110L, Mean Platelet Volume 10.1, Immature Granulocyte % (Auto) 13, Neutrophils (%) (Auto) 57, Lymphocytes (%) (Auto) 10L, Monocytes (%) (Auto) 19H, Eosinophils (%) (Auto) 0, Basophils (%) (Auto) 1, Neutrophils # (Auto) 1.9, Lymphocytes # (Auto) 0.4L, Monocytes # (Auto) 0.6, Eosinophils # (Auto) 0.0, Basophils # (Auto) 0.0, Immature Granulocyte # (Auto) 0.4H, Percent Immature Platelet Fraction 4.4, Sodium Level 132L, Potassium Level 3.9, Chloride Level 106, Carbon Dioxide Level 16L, Anion Gap 10, Blood Urea Nitrogen 4L, Creatinine 0.55L, Estimat Glomerular Filtration Rate > 60, BUN/Creatinine Ratio 7, Glucose Level 93, Calcium Level 8.0L, Corrected Calcium 9.4, Total Bilirubin 0.7, Aspartate Amino Transf (AST/SGOT) 10, Alanine Aminotransferase (ALT/SGPT) 9, Alkaline Phosphatase 58, Total Protein 4.9L, Albumin 2.2L Microbiology 10/03/20 Blood Culture - Final, Complete No growth 10/03/20 Urine Culture - Final, Complete NO GROWTH Assessment/Plan Assessment/Plan Assessment and Plan 10/09/20- continue IVF, monitoring electrolytes, WBC, platelets slowly tren ding up. Hgb improved with 1pRBC on 10/08/20 (third unit total). Continue with lomotil and cholestyramine for diarrhea. -continue to monitor catheter and perineal edema- 10/10/20- overall improving- would like to try zofran 30minutes prior then try cholestyramine but pt declines trying this. Added on hydrocodone for oral pain management in working towards discharge. cell lines continue to improve. Dispo: improving. Problems: (1) Diarrhea (2) Profound anemia Qualifiers: Qualified Codes: D64.9 - Anemia, unspecified (3) Dehydration (4) Acute renal failure (5) Pancytopenia (6) Perineal pain in female (7) Hypothyroid (8) Hyponatremia (9) Hypokalemia (10) History of rectal cancer NESSA BRADFORD MD Oct 10, 2020 13:18
[2020-10-10 16:12] VITALS: BP 133/76
[2020-10-10] MEDS: DIPHENOXYLATE/ATROPINE 2.5MG/0.025MG (LOMOTIL) TAB PO PRN (17:55)
[2020-10-11 00:05] VITALS: BP 171/75
[2020-10-11] MEDS: BENZOCAINE 20% ORAL GEL (ORALJEL MAX ST) MM SCH ×6 (00:40→19:40)
[2020-10-11] MEDS: NYSTATIN ORAL SUSP 5 ML UDC PO SCH ×4 (00:41→17:54)
[2020-10-11] MEDS: LIDOCAINE JELLY 2% 6 ML SYRINGE TOP SCH ×6 (00:41→19:39)
[2020-10-11] MEDS: LEVOTHYROXINE 100 MCG (LEVOTHROID) TAB PO SCH (05:10)
[2020-10-11] MEDS: KCL 10 MEQ TAB (MICRO K) PO SCH (05:10)
[2020-10-11] MEDS: fentaNYL INJ 100 MCG/2 ML AMP IVP PRN ×2 (05:13→12:08)
[2020-10-11] MEDS: NS W/KCL 20 MEQ/L 1,000 ML IV SCH ×2 (05:27→17:56)
[2020-10-11 06:04] LABS: BASOPHILS # (AUTO) 0.1 10^3/uL (0.0-0.1); BASOPHILS % (AUTO) 1 % (0-10); EOSINOPHILS % (AUTO) 0 % (0-10); HEMATOCRIT 30 % (35-52); HEMOGLOBIN 9.6 g/dL (11.5-16.0); LYMPHOCYTES # (AUTO) 0.5 10^3/uL (1.0-4.0); LYMPHOCYTES % (AUTO) 11 % (12-44); MEAN CORPUSCULAR HEMOGLOBIN 30 pg (25-34); MEAN CORPUSCULAR HGB CONC 32 g/dL (32-36); MEAN CORPUSCULAR VOLUME 93 fL (80-99); MEAN PLATELET VOLUME 10.3 fL (9.0-12.2); MONOCYTES # (AUTO) 0.8 10^3/uL (0.0-1.0); MONOCYTES % (AUTO) 16 % (0-12); NEUTROPHILS # (AUTO) 2.9 10^3/uL (1.8-7.8); NEUTROPHILS % (AUTO) 57 % (42-75); PLATELET COUNT 152 10^3/uL (130-400)
[2020-10-11 06:14] LABS: ALBUMIN 2.5 GM/DL (3.2-4.5); CHLORIDE 106 MMOL/L (98-107); SODIUM 134 MMOL/L (135-145)
[2020-10-11 06:15] LABS: CALCIUM 8.5 MG/DL (8.5-10.1)
[2020-10-11 06:16] LABS: GLUCOSE 77 MG/DL (70-105); TOTAL PROTEIN 5.8 GM/DL (6.4-8.2)
[2020-10-11 06:17] LABS: CARBON DIOXIDE 17 MMOL/L (21-32)
[2020-10-11 06:18] LABS: BILIRUBIN,TOTAL 0.9 MG/DL (0.1-1.0)
[2020-10-11 06:20] LABS: ALKALINE PHOSPHATASE 69 U/L (40-136); CREATININE SERUM 0.56 MG/DL (0.60-1.30); GFR ESTIMATED > 60
[2020-10-11 06:21] LABS: BUN/CREATININE RATIO 7
[2020-10-11 06:23] LABS: ALANINE AMINOTRANSFERASE 10 U/L (0-55)
[2020-10-11 08:00] VITALS: BP 137/84
[2020-10-11] MEDS: DIPHENOXYLATE/ATROPINE 2.5MG/0.025MG (LOMOTIL) TAB PO SCH ×4 (08:56→19:39)
[2020-10-11] MEDS: PHENAZOPYRIDINE 100 MG (PYRIDIUM) TABLET PO SCH ×3 (08:56→17:54)
[2020-10-11] MEDS: VALACYCLOVIR 500 MG TAB (VALTREX) PO SCH ×2 (08:56→19:39)
[2020-10-11] MEDS: DICYCLOMINE 10 MG (BENTYL) CAP PO SCH ×4 (08:57→19:39)
[2020-10-11] MEDS: CHOLESTYRAMINE 4 GM (QUESTRAN LITE, PREVALITE) PKT PO SCH (08:59)
[2020-10-11] MEDS: SILVER SULFADIAZINE 400 GM CREAM TOP SCH ×4 (08:59→21:17)
[2020-10-11] MEDS: COLESTIPOL 1 GM (COLESTID) TAB PO SCH ×2 (12:00→19:40)
[2020-10-11] MEDS: ONDANSETRON 4 MG/2 ML (SDV) Z0FRAN IVP PRN ×2 (12:08→18:05)
--- NOTE | 2020-10-11 12:58 | Progress Note ---
Subjective Subjective PT IS A 75 Y/O FEMALE WHO IS KNOWN TO ME FROM CLINIC. SHE HAS RENAL FAILURE, DEHYDRATION AND SEVERE DEMAR-PAIN. SHE STATES THAT SHE IS FEELING A LITTLE BETTER, STILL HAVING PAIN, DIARRHEA WITH IMPROVEMENT IN PT'S ABILITY TO GET TO THE RESTROOM RATHER THAN STOOLING IN HER BED AND HAVING BURNING OF VAGINAL AND RECTAL TISSUE. FAMILY CONCERNED ABOUT EDEMA OF LOWER LEGS Review of Systems General: No Chills; Fatigue HEENT: No Visual Changes Pulmonary: No Dyspnea, No Cough Cardiovascular: Edema; No: Chest Pain Gastrointestinal: Diarrhea (IMPROVING); No: Nausea, Abdominal Pain Genitourinary: Other (OLIVA) Neurological: Weakness; No: Confusion All Other Systems Reviewed All Other Systems Reviewed: Yes Objective Exam Vital Signs Vital Signs - First Documented 10/05/20 10/09/20 00:20 20:00 Temp 36.5 Pulse 82 Resp 20 B/P (MAP) 105/64 (78) Pulse Ox 97 O2 Delivery Room Air O2 Flow Rate 1.00 Capillary Refill : Less Than 3 Seconds General Appearance: No Apparent Distress, WD/WN Eyes: Bilateral Eye Normal Inspection, Bilateral Eye PERRL, Bilateral Eye EOMI HEENT: PERRL/EOMI Neck: Full Range of Motion, Non Tender, Supple Respiratory: Chest Non Tender, Lungs Clear, Normal Breath Sounds, No Accessory Muscle Use, No Respiratory Distress Cardiovascular: Regular Rate, Rhythm, Normal Peripheral Pulses Gastrointestinal: Normal Bowel Sounds, No Organomegaly, No Pulsatile Mass, Non Tender, Soft Genital/Rectal: Other (labia, perineal swelling appears improved.) Back: No Vertebral Tenderness Extremity: Normal Capillary Refill, Normal Inspection, Normal Range of Motion, Non Tender, No Calf Tenderness, Pedal Edema (2+ pitting legs) Neurologic/Psychiatric: Alert, Oriented x3, No Motor/Sensory Deficits, 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, 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 Skin: Other (SEE ABOVE DOCUMENTATION ABOUT BURNED VAGINAL/PERINEAL TISSUE) Lymphatic: No Adenopathy Results Lab Laboratory Tests 10/11/20 05:35: White Blood Count 5.0, Red Blood Count 3.20L, Hemoglobin 9.6L, Hematocrit 30L, Mean Corpuscular Volume 93, Mean Corpuscular Hemoglobin 30, Mean Corpuscular Hemoglobin Concent 32, Red Cell Distribution Width 18.0H, Platelet Count 152, Mean Platelet Volume 10.3, Immature Granulocyte % (Auto) 15, Neutrophils (%) (Auto) 57, Lymphocytes (%) (Auto) 11L, Monocytes (%) (Auto) 16H, Eosinophils (%) (Auto) 0, Basophils (%) (Auto) 1, Neutrophils # (Auto) 2.9, Lymphocytes # (Auto) 0.5L, Monocytes # (Auto) 0.8, Eosinophils # (Auto) 0.0, Basophils # (Auto) 0.1, Immature Granulocyte # (Auto) 0.8H, Sodium Level 134L, Potassium Level 4.0, Chloride Level 106, Carbon Dioxide Level 17L, Anion Gap 11, Blood Urea Nitrogen 4L, Creatinine 0.56L, Estimat Glomerular Filtration Rate > 60, BUN/Creatinine Ratio 7, Glucose Level 77, Calcium Level 8.5, Corrected Calcium 9.7, Total Bilirubin 0.9, Aspartate Amino Transf (AST/SGOT) 10, Alanine Aminotransferase (ALT/SGPT) 10, Alkaline Phosphatase 69, Total Protein 5.8L, Albumin 2.5L Microbiology 10/03/20 Blood Culture - Final, Complete No growth 10/03/20 Urine Culture - Final, Complete NO GROWTH Assessment/Plan Assessment/Plan Admission Dx SEVERE DEHYDRATION ACUTE RENAL FAILURE ACUTE LIVER FAILURE DUE TO SHOCK HX OF RECTAL CARCINOMA URINARY TRACT INFECTION HYPONATREMIA HYPERBILIRUBINEMIA Assessment and Plan SEVERE DEHYDRATION ACUTE RENAL FAILURE ACUTE LIVER FAILURE DUE TO SHOCK HX OF RECTAL CARCINOMA URINARY TRACT INFECTION HYPONATREMIA HYPERBILIRUBINEMIA DIARRHEA MOUTH SORES SEVERE DEHYDRATION - WITH ACUTE RENAL FAILURE - IV FLUIDS - CONTINUE WITH IV FLUIDS, MONITOR LABS, PT IMPROVING FROM A R ENAL STANDPOINT ACUTE LIVER FAILURE DUE TO SHOCK - IMPROVING STATUS POST FLUIDS. HX OF RECTAL CARCINOMA - SUPPORTIVE CARE ONLY AT THIS TIME. URINARY TRACT INFECTION - FINISHED IV ANTIBIOTICS HYPONATREMIA - REPLACED WITH HYPERTONIC SALINE - CONTINUE WITH NORMAL SALINE AT THIS TIME, MONITOR LABS, WILL DECREASE FLUIDS DUE TO EDEMA AND IMPROVED SODIUM LEVEL HYPERBILIRUBINEMIA DIARRHEA - CONTINUE WITH IV FLUIDS - CONTINUE WITH LOMOTIL, STARTED QUESTRAN, ADVANCED DIET ( HAVE ORDERED THIS TWICE, BUT IT HAS NOT BEEN CARRIED, OUT, TALKED TO DIETARY TODAY AND HER ADVANCED DIET HAS BEEN CONFIRMED) - INCREASED QUESTRAN TO 1/2 PACKET TID VAGINAL PAIN/RECTA/PERINEAL PAIN - RX FOR LIDOCAINE GEL TO TISSUE HYPOTHYROID - WILL RESTART LEVOTHYROXINE Problems: (1) Diarrhea (2) Profound anemia Qualifiers: Qualified Codes: D64.9 - Anemia, unspecified (3) Dehydration (4) Acute renal failure (5) Pancytopenia (6) Perineal pain in female (7) Hypothyroid (8) Hyponatremia (9) Hypokalemia (10) History of rectal cancer Admission Dx SEVERE DEHYDRATION ACUTE RENAL FAILURE ACUTE LIVER FAILURE DUE TO SHOCK HX OF RECTAL CARCINOMA URINARY TRACT INFECTION HYPONATREMIA HYPERBILIRUBINEMIA Clinical Quality Measures Admission Status Admission Dx SEVERE DEHYDRATION ACUTE RENAL FAILURE ACUTE LIVER FAILURE DUE TO SHOCK HX OF RECTAL CARCINOMA URINARY TRACT INFECTION HYPONATREMIA HYPERBILIRUBINEMIA RANJITH HOUSE MD Oct 11, 2020 12:58
[2020-10-11] MEDS ORDERED: FUROSEMIDE 40 MG/4 ML INJ (LASIX) IVP ONE (13:00)
--- NOTE | 2020-10-11 15:17 | Physical Therapy Evaluation ---
PT Evaluation-General Medical Diagnosis Admission Date Oct 03, 2020 at 16:57 Medical Diagnosis: UTI/rectal cancer Onset Date: Oct 03, 2020 Therapy Diagnosis Therapy Diagnosis: debility/weakness Precautions Precautions/Isolations: Fall Prevention, Standard Precautions Referral Physician: [place] Reason for Referral: Evaluation/Treatment Medical History Pertinent Medical History: HTN, Hypothroidism Additional Medical History rectal cancer Current History EMS secondary to N&V and diarrhea Reviewed History: Yes Social History Home: Single Level Current Living Status: Spouse Prior Prior Level of Function SCALE: Activities may be completed with or without assistive devices. 5-Knelocndrz-dyrcfxp completes the activity by him/herself with no assistance from a helper. 5-Set-up or Clean-up Assistance-helper sets up or cleans up; patient completes activity. [place] assists only prior to or following the activity. 4-Supervision or Touching Assistance-helper provides verbal cues and/or to uching/steadying and/or contact guard assistance as patient completes activity. Assistance may be provided throughout the activity or intermittently. 3-Partial/Moderate Assistance-helper does LESS THAN HALF the effort. [facility] lifts, holds or supports trunk or limbs, but provides less than half the effort. 2-Substantial/Maximal Assistance-helper does MORE THAN HALF the effort. [place] lifts or holds trunk or limbs and provides more than half the effort. 0-Syrxldtic-zmxbur does ALL the effort. Patient does none of the effort to complete the activity. Or, the assistance of 2 or more helpers is required for the patient to complete the activity. If activity was not attempted, code reason: 7-Patient Refused. 9-Not Applicable-not attempted and the patient did not perform the activity before the current illness, exacerbation or injury. 10-Not Attempted due to Environmental Limitations-(lack of equipment, weather restraints, etc.). 88-Not Attempted due to Medical Conditions or Safety Concerns. Bed Mobility: 6 Transfers (B,C,W/C): 6 Gait: 6 Stairs: 6 Indoor Mobility (Ambulation): Independent Stairs: Independent Prior Devices Use: None PT Evaluation-Current Subjective Patient agrees to PT. Spouse present. Objective Patient Orientation: Normal For Age Attachments: Matthews Catheter, IV ROM/Strength ROM Lower Extremities bilateral LE WFL Strength Lower Extremities 3/5 grossly bilateral LE Integumentary/Posture Integumentary noted 2+ edema bilateral LE Bowel Incontinence: No Bladder Incontinence: Matthews Cath Posture WFL Neuromuscular (Tone, Coordination, Reflexes) grossly intact Sensory Vision: Functional Hearing: Functional Transfers Sit to Lying (QC): 3 Lying to Sitting/Side of Bed(Q: 3 Sit to Stand (QC): 4 Chair/Uuj-am-Kshcf Xfer(QC): 4 Toilet Transfer (QC): 4 Gait Does the Patient Walk?: Yes Mode of Locomotion: Walk Anticipated Mode of Locomotion: Walk Walk 10 feet (QC): 4 Walk 50 ft with 2 Turns(QC): 4 Walk 150 ft (QC): 4 Distance: 200' Gait Assistive Device: FWW Comments/Gait Description safe and functional with no deviation Balance Sitting Static: Normal Sitting Dynamic: Normal Standing Static: Normal Standing Dynamic: Normal Assessment/Needs 75 y.o. female, will benefit from short term skilled PT to address functional strength and mobility to improve current LOF to safely return to home with spouse at maximum LOF. Rehab Potential: Guarded PT Oil Extractor Goals Alf Goals PT Oil Extractor Goals Time Frame: Oct 23, 2020 Roll Left & Right (QC): 6 Sit to Lying (QC): 6 Lying-Sitting on Side/Bed(QC): 6 Sit to Stand (QC): 6 Chair/Klt-ay-Rdkko Xfer(QC): 6 Toilet Transfer (QC): 6 Walk 10 feet (QC): 6 Walk 50ft with 2 Turns (QC): 6 Walk 150 ft (QC): 6 PT Plan Problem List Problem List: Activity Tolerance, Functional Strength Treatment/Plan Treatment Plan: Continue Plan of Care Treatment Plan: Bed Mobility, Education, Functional Activity Dot, Functional Strength, Gait, Safety, Therapeutic Exercise, Transfers Treatment Duration: Oct 23, 2020 Frequency: 6 times per week Estimated Hrs Per Day: .25 hour per day Patient and/or Family Agrees t: Yes Discharge Recommendations Therapy Discharge Recommendati: Home & Family Time/GCodes Time In: 1455 Time Out: 1508 Total Billed Treatment Time: 13 Total Billed Treatment 1 visit EVModC 13 min JOEY AGUILAR PT Oct 11, 2020 15:17
[2020-10-11] MEDS ORDERED: FUROSEMIDE 40 MG/4 ML INJ (LASIX) IVP NR (18:00)
[2020-10-11 19:25] VITALS: BP 135/84
[2020-10-12] MEDS: BENZOCAINE 20% ORAL GEL (ORALJEL MAX ST) MM SCH ×7 (00:22→21:46)
[2020-10-12] MEDS: NYSTATIN ORAL SUSP 5 ML UDC PO SCH ×5 (00:22→21:45)
[2020-10-12] MEDS: LIDOCAINE JELLY 2% 6 ML SYRINGE TOP SCH ×7 (00:22→21:46)
[2020-10-12 00:24] VITALS: BP 129/76
[2020-10-12] MEDS: fentaNYL INJ 100 MCG/2 ML AMP IVP PRN ×2 (01:16→21:45)
[2020-10-12] MEDS: LEVOTHYROXINE 100 MCG (LEVOTHROID) TAB PO SCH (06:19)
[2020-10-12] MEDS: KCL 10 MEQ TAB (MICRO K) PO SCH (06:19)
[2020-10-12] MEDS: ONDANSETRON 4 MG/2 ML (SDV) Z0FRAN IVP PRN (08:13)
[2020-10-12 08:14] VITALS: BP 133/77
[2020-10-12] MEDS: VALACYCLOVIR 500 MG TAB (VALTREX) PO SCH ×2 (08:15→20:29)
[2020-10-12] MEDS: DIPHENOXYLATE/ATROPINE 2.5MG/0.025MG (LOMOTIL) TAB PO SCH ×4 (08:16→20:29)
[2020-10-12] MEDS: PHENAZOPYRIDINE 100 MG (PYRIDIUM) TABLET PO SCH ×3 (08:16→18:18)
[2020-10-12] MEDS: DICYCLOMINE 10 MG (BENTYL) CAP PO SCH ×4 (08:22→20:29)
[2020-10-12] MEDS: COLESTIPOL 1 GM (COLESTID) TAB PO SCH ×2 (08:22→20:29)
[2020-10-12] MEDS: SILVER SULFADIAZINE 400 GM CREAM TOP SCH ×4 (08:23→20:29)
--- NOTE | 2020-10-12 08:38 | Progress Note ---
Subjective Subjective Date Seen by Provider: Oct 12, 2020 Time Seen by Provider: 08:37 PT IS A 75 Y/O FEMALE WHO IS KNOWN TO ME FROM CLINIC. SHE HAS RENAL FAILURE, DEHYDRATION AND SEVERE DEMAR-PAIN. Review of Systems General: No Chills; Fatigue HEENT: No Visual Changes Pulmonary: No Dyspnea, No Cough Cardiovascular: Edema; No: Chest Pain Gastrointestinal: Diarrhea (IMPROVING); No: Nausea, Abdominal Pain Genitourinary: Other (OLIVA) Neurological: Weakness; No: Confusion All Other Systems Reviewed All Other Systems Reviewed: Yes Objective Exam Vital Signs Vital Signs - First Documented 10/06/20 10/09/20 03:39 20:00 Temp 36.3 Pulse 80 Resp 20 B/P (MAP) 111/69 (83) Pulse Ox 95 O2 Delivery Room Air O2 Flow Rate 1.00 Capillary Refill : Less Than 3 Seconds General Appearance: No Apparent Distress, WD/WN Eyes: Bilateral Eye Normal Inspection, Bilateral Eye PERRL, Bilateral Eye EOMI HEENT: PERRL/EOMI Neck: Full Range of Motion, Non Tender, Supple Respiratory: Chest Non Tender, Lungs Clear, Normal Breath Sounds, No Accessory Muscle Use, No Respiratory Distress Cardiovascular: Regular Rate, Rhythm, Normal Peripheral Pulses Gastrointestinal: Normal Bowel Sounds, No Organomegaly, No Pulsatile Mass, Non Tender, Soft Genital/Rectal: Other (labia, perineal swelling appears improved.) Back: No Vertebral Tenderness Extremity: Normal Capillary Refill, Normal Inspection, Normal Range of Motion, Non Tender, No Calf Tenderness, Pedal Edema (2+ pitting legs) Neurologic/Psychiatric: Alert, Oriented x3, No Motor/Sensory Deficits, 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, funeral pre need consultant II-XII Norm as Tested Skin: Other (SEE ABOVE DOCUMENTATION ABOUT BURNED VAGINAL/PERINEAL TISSUE) Lymphatic: No Adenopathy Results Lab Laboratory Tests 10/11/20 13:47: Lab Scanned Report Transfusion Reaction Form Microbiology 10/03/20 Blood Culture - Final, Complete No growth 10/03/20 Urine Culture - Final, Complete NO GROWTH Assessment/Plan Assessment/Plan Admission Dx SEVERE DEHYDRATION ACUTE RENAL FAILURE ACUTE LIVER FAILURE DUE TO SHOCK HX OF RECTAL CARCINOMA URINARY TRACT INFECTION HYPONATREMIA HYPERBILIRUBINEMIA Assessment and Plan SEVERE DEHYDRATION ACUTE RENAL FAILURE ACUTE LIVER FAILURE DUE TO SHOCK HX OF RECTAL CARCINOMA URINARY TRACT INFECTION HYPONATREMIA HYPERBILIRUBINEMIA DIARRHEA MOUTH SORES SEVERE DEHYDRATION - WITH ACUTE RENAL FAILURE - IV FLUIDS - CONTINUE WITH IV FLUIDS, MONITOR LABS, PT IMPROVING FROM A RENAL STANDPOINT ACUTE LIVER FAILURE DUE TO SHOCK - IMPROVING STATUS POST FLUIDS. HX OF RECTAL CARCINOMA - SUPPORTIVE CARE ONLY AT THIS TIME. URINARY TRACT INFECTION - FINISHED IV ANTIBIOTICS HYPONATREMIA - REPLACED WITH HYPERTONIC SALINE - CONTINUE WITH NORMAL SALINE AT THIS TIME, MONITOR LABS, WILL DECREASE FLUIDS DUE TO EDEMA AND IMPROVED SODIUM LEVEL HYPERBILIRUBINEMIA DIARRHEA - CONTINUE WITH IV FLUIDS - CONTINUE WITH LOMOTIL, STARTED QUESTRAN, ADVANCED DIET ( HAVE ORDERED THIS TWICE, BUT IT HAS NOT BEEN CARRIED, OUT, TALKED TO DIETARY TODAY AND HER ADVANCED DIET HAS BEEN CONFIRMED) - INCREASED QUESTRAN TO 1/2 PACKET TID VAGINAL PAIN/RECTA/PERINEAL PAIN - RX FOR LIDOCAINE GEL TO TISSUE HYPOTHYROID - WILL RESTART LEVOTHYROXINE Problems: (1) Diarrhea (2) Profound anemia Qualifiers: Qualified Codes: D64.9 - Anemia, unspecified (3) Dehydration (4) Acute renal failure (5) Pancytopenia (6) Perineal pain in female (7) Hypothyroid (8) Hyponatremia (9) Hypokalemia (10) History of rectal cancer Admission Dx SEVERE DEHYDRATION ACUTE RENAL FAILURE ACUTE LIVER FAILURE DUE TO SHOCK HX OF RECTAL CARCINOMA URINARY TRACT INFECTION HYPONATREMIA HYPERBILIRUBINEMIA Clinical Quality Measures Admission Status Admission Dx SEVERE DEHYDRATION ACUTE RENAL FAILURE ACUTE LIVER FAILURE DUE TO SHOCK HX OF RECTAL CARCINOMA URINARY TRACT INFECTION HYPONATREMIA HYPERBILIRUBINEMIA RANJITH HOUSE MD Oct 12, 2020 08:38
[2020-10-12] MEDS: SPIRONOLACTONE 25 MG (ALDACTONE) TAB PO SCH (09:39)
[2020-10-12] MEDS: PANTOPRAZOLE 20 MG TABLET (PROTONIX) PO SCH (09:39)
--- NOTE | 2020-10-12 10:57 | Physical Therapy Daily Note ---
PT Daily Note-Current Subjective Patient reports she is going home tomorrow. Spouse present. Mental Status Patient Orientation: Normal For Age Attachments: Central Line Transfers SCALE: Activities may be completed with or without assistive devices. 0-Wwdtebrpgq-fyhxmfz completes the activity by him/herself with no assistance from a helper. 5-Set-up or Clean-up Assistance-helper sets up or cleans up; patient completes activity. Bartley assists only prior to or following the activity. 4-Supervision or Touching Assistance-helper provides verbal cues and/or touching/steadying and/or contact guard assistance as patient completes activit y. Assistance may be provided throughout the activity or intermittently. 3-Partial/Moderate Assistance-helper does LESS THAN HALF the effort. Bartley lifts, holds or supports trunk or limbs, but provides less than half the effort. 2-Substantial/Maximal Assistance-helper does MORE THAN HALF the effort. Bartley lifts or holds trunk or limbs and provides more than half the effort. 0-Qcckbmlyc-lbwjqk does ALL the effort. Patient does none of the effort to complete the activity. Or, the assistance of 2 or more helpers is required for the patient to complete the activity. If activity was not attempted, code reason: 7-Patient Refused. 9-Not Applicable-not attempted and the patient did not perform the activity before the current illness, exacerbation or injury. 10-Not Attempted due to Environmental Limitations-(lack of equipment, weather restraints, etc.). 88-Not Attempted due to Medical Conditions or Safety Concerns. Sit to Stand (QC): 6 Gait Training Does the Patient Walk?: Yes Distance: 250' Walk 10 feet (QC): 4 Walk 50 ft with 2 Turns(QC): 4 Walk 150 ft (QC): 4 Gait Assistive Device: FWW functional gait sequence with FWW Assessment Patient requires time to complete all functional tasks. Plan dismissal to home with spouse assist in home. Patient reports she has a FWW at home. PT Senior Living Goals Waterworks Supervisor Goals PT Waterworks Supervisor Goals Time Frame: Oct 23, 2020 Roll Left & Right (QC): 6 Sit to Lying (QC): 6 Lying-Sitting on Side/Bed(QC): 6 Sit to Stand (QC): 6 Chair/Wgz-gu-Jvtbx Xfer(QC): 6 Toilet Transfer (QC): 6 Walk 10 feet (QC): 6 Walk 50ft with 2 Turns (QC): 6 Walk 150 ft (QC): 6 PT Plan Treatment/Plan Treatment Plan: Continue Plan of Care Treatment Plan: Bed Mobility, Education, Functional Activity Dot, Functional Strength, Gait, Safety, Therapeutic Exercise, Transfers Treatment Duration: Oct 23, 2020 Frequency: 6 times per week Estimated Hrs Per Day: .25 hour per day Patient and/or Family Agrees t: Yes Time/GCodes Time In: 1005 Time Out: 1016 Total Billed Treatment Time: 11 Total Billed Treatment 1 visit FA 11 min JOEY AGUILAR PT Oct 12, 2020 10:57
[2020-10-12 16:00] VITALS: BP 124/61
[2020-10-12] MEDS: NS W/KCL 20 MEQ/L 1,000 ML IV SCH (18:17)
[2020-10-12] MEDS ORDERED: ALPRAZolam 0.5 MG (XANAX) TAB PO SCH (21:00)
[2020-10-12 23:30] VITALS: BP 129/79
[2020-10-13] MEDS: DIPHENOXYLATE/ATROPINE 2.5MG/0.025MG (LOMOTIL) TAB PO PRN (01:36)
[2020-10-13] MEDS: BENZOCAINE 20% ORAL GEL (ORALJEL MAX ST) MM SCH ×3 (04:45→12:31)
[2020-10-13] MEDS: LEVOTHYROXINE 100 MCG (LEVOTHROID) TAB PO SCH (05:32)
[2020-10-13] MEDS: LIDOCAINE JELLY 2% 6 ML SYRINGE TOP SCH ×3 (05:32→12:31)
[2020-10-13] MEDS: KCL 10 MEQ TAB (MICRO K) PO SCH (05:32)
[2020-10-13] MEDS: NYSTATIN ORAL SUSP 5 ML UDC PO SCH ×2 (05:32→12:30)
[2020-10-13 07:30] VITALS: BP 122/58
--- NOTE | 2020-10-13 09:18 | Discharge Summary ---
Diagnosis/Chief Complaint Date of Admission Oct 03, 2020 at 16:57 Date of Discharge Reason Hospital Visit PT IS A 75 Y/O FEMALE WHO IS KNOWN TO ME FROM CLINIC. SHE PRESENTED TO THE HOSPITAL WITH SEVERE WEAKNESS, MALAISE, UTI SYMPTOMS. SHE WAS FOUND TO BE PROFOUNDLY DEHYDRATED AND SEVERELY ANEMIC ON EVAL IN THE ER. SHE WAS IN ACUTE RENAL FAILURE WITH EXTENSIVE VOLUME CONTRACTION. SHE WAS THEREFORE ADMITTED TO THE HOSPITAL FOR REHYDRATION, BLOOD PRODUCTS, AND ELECTROLYTE REPLENISHMENT. Discharge Summary Discharge Physical Examination Allergies: Coded Allergies: No Allergy Information Available (Unverified , 12/26/18) Vitals & I&Os Vital Signs Date Time Temp Pulse Resp B/P (MAP) Pulse Ox O2 Delivery O2 Flow Rate FiO2 10/13/20 07:30 36.9 75 17 122/58 (79) 93 Room Air 10/09/20 20:00 1.00 Discharge Instructions to patient/family Please see electronic discharge instructions given to patient. Discharge Medications Reviewed and agree with Discharge Medication list on patient's Discharge Instruction sheet RANJITH HOUSE MD Oct 13, 2020 09:18
[2020-10-13] MEDS ORDERED: SILV20CR14 TOP (09:28)
[2020-10-13] MEDS ORDERED: NF-COLE1GM PO (09:28)
[2020-10-13] MEDS ORDERED: DICY10CA12 PO (09:28)
[2020-10-13] MEDS ORDERED: LIDO6JEL TOP (09:28)
[2020-10-13] MEDS ORDERED: ALPR0.5T7 PO (09:28)
[2020-10-13] MEDS ORDERED: ACHD5005 PO (09:28)
[2020-10-13] MEDS ORDERED: DIPH1TAB25 PO (09:28)
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
[2020-10-13] MEDS: PHENAZOPYRIDINE 100 MG (PYRIDIUM) TABLET PO SCH (09:39)
[2020-10-13] MEDS: DICYCLOMINE 10 MG (BENTYL) CAP PO SCH ×2 (09:39→12:30)
[2020-10-13] MEDS: DIPHENOXYLATE/ATROPINE 2.5MG/0.025MG (LOMOTIL) TAB PO SCH ×2 (09:39→12:30)
[2020-10-13] MEDS: COLESTIPOL 1 GM (COLESTID) TAB PO SCH (09:39)
[2020-10-13] MEDS: SPIRONOLACTONE 25 MG (ALDACTONE) TAB PO SCH (09:39)
[2020-10-13] MEDS: VALACYCLOVIR 500 MG TAB (VALTREX) PO SCH (09:39)
[2020-10-13] MEDS: PANTOPRAZOLE 20 MG TABLET (PROTONIX) PO SCH (09:39)
[2020-10-13] MEDS: SILVER SULFADIAZINE 400 GM CREAM TOP SCH ×2 (09:40→12:31)
[2020-10-13 14:30] VITALS: BP 122/58
== END 2020-10-13 14:30 | disposition home health service (06) | DRG 682 ==
LOC: EDUNIT# 15:27 → ER 15:29 → 4TH 16:57
PROVIDERS: ADMIT Family Medicine; ATTEND Family Medicine
DX: N17.9 Acute kidney failure, unspecified (principal); K72.00 Acute and subacute hepatic failure without coma; N39.0 Urinary tract infection, site not specified; E87.1 Hypo-osmolality and hyponatremia; D61.818 Other pancytopenia; E86.0 Dehydration; E78.00 Pure hypercholesterolemia, unspecified; E87.6 Hypokalemia; I10 Essential (primary) hypertension; K21.9 Gastro-esophageal reflux disease without esophagitis; K13.79 Other lesions of oral mucosa; E03.9 Hypothyroidism, unspecified; F41.9 Anxiety disorder, unspecified; D64.9 Anemia, unspecified; R19.7 Diarrhea, unspecified; Z85.048 Personal history of other malignant neoplasm of rectum, rectosigmoid junction, and anus; Z92.21 Personal history of antineoplastic chemotherapy; Z92.3 Personal history of irradiation; Z79.890 Hormone replacement therapy; Z79.899 Other long term (current) drug therapy
CPT/HCPCS: 36415; 36598; 51702; 80053; 81000; 83605; 83735; 85007; 85025; 85027; 86141; 86850; 86900; 86901; 86920; 87040; 87088; 94760; 96374; 96375; 96376

== ENCOUNTER 2020-10-04 09:27 | Outpatient (RCR) | payer MEDICARE, OTHER ==
[2020-10-04] MEDS ORDERED: LEVO100T7 PO (15:04)
[2020-10-04] MEDS ORDERED: ATOR10TA66 PO (15:04)
[2020-10-04] MEDS ORDERED: CALC-823 PO (15:04)
[2020-10-04] MEDS ORDERED: DIPH1TAB25 PO (15:04)
[2020-10-04] MEDS ORDERED: SPIR25TA5 PO (15:04)
[2020-10-04] MEDS ORDERED: ACHD5005 PO (15:04)
[2020-10-04] MEDS ORDERED: DICY20TA10 PO (15:04)
[2020-10-04] MEDS ORDERED: OMEP20CA18 PO (15:04)
[2020-10-04] MEDS ORDERED: ALPR0.5T7 PO (15:04)
[2020-10-04] MEDS ORDERED: NAPR220T66 PO (15:04)
[2020-10-04] MEDS ORDERED: POTA10CA43 PO (15:05)
[2020-10-13] MEDS ORDERED: DICY10CA12 PO (09:28)
[2020-10-13] MEDS ORDERED: SILV20CR14 TOP (09:28)
[2020-10-13] MEDS ORDERED: LIDO6JEL TOP (09:28)
[2020-10-13] MEDS ORDERED: ALPR0.5T7 PO (09:28)
[2020-10-13] MEDS ORDERED: NF-COLE1GM PO (09:28)
[2020-10-13] MEDS ORDERED: DIPH1TAB25 PO (09:28)
[2020-10-13] MEDS ORDERED: ACHD5005 PO (09:28)
== END 2020-11-08 | disposition home or self-care (01) ==
LOC: ONC 09:27
PROVIDERS: ATTEND Radiology Radiation Oncology
DX: C21.0 Malignant neoplasm of anus, unspecified (principal); I10 Essential (primary) hypertension; Z90.710 Acquired absence of both cervix and uterus; Z87.891 Personal history of nicotine dependence
CPT/HCPCS: 77300; 77301; 77334; 77338; G0463; 77280; 77336; 77386; 99204

== ENCOUNTER → 2020-11-18 | Outpatient (CLI) | payer MEDICARE, OTHER ==
[~2020-11-18] MED LIST changes: +ACHD5005 PO; +ALPR0.5T7 PO; +ATOR10TA66 PO; +CALC-823 PO; -CATHETER FLUSH 10 ML SYR IV PRN; +DICY10CA12 PO; +DICY20TA10 PO; +DIPH1TAB25 PO; +LEVO100T7 PO; +LIDO6JEL TOP; +NAPR220T66 PO; +NF-COLE1GM PO; +OMEP20CA18 PO; +POTA10CA43 PO; -REGADENOSON 0.4 MG/5 ML SYR (LEXISCAN) IV ONE; +SILV20CR14 TOP; +SPIR25TA5 PO
== END ==
LOC: EDSTATUS 09:19 → ONC 09:21
PROVIDERS: ATTEND Radiology Radiation Oncology
DX: C21.0 Malignant neoplasm of anus, unspecified (principal); E78.00 Pure hypercholesterolemia, unspecified; E03.9 Hypothyroidism, unspecified; I10 Essential (primary) hypertension
CPT/HCPCS: 99213

== ENCOUNTER → 2021-02-07 | Outpatient (CLI) | payer MEDICARE, OTHER ==
--- NOTE | 2021-02-07 16:12 | Diagnostic Imaging Report ---
INDICATION: Routine screening. COMPARISON: 01/27/2020 and 01/10/2019. TECHNIQUE: 2D and 3D bilateral screening mammography was performed with CAD. FINDINGS: Bilateral breast implants are again noted. The contours remain stable. There are calcifications of the implant shells bilaterally. Both breasts are heterogeneously dense, limiting the sensitivity of mammography. No mass or malignant-appearing microcalcifications are seen. The right axilla contains a chest wall port hub. IMPRESSION: No mammographic features suspicious for malignancy are identified. ACR BI-RADS Category 2: Benign findings. Result letter will be mailed to the patient. Note: At least 10% of breast cancer is not imaged by mammography. Dictated by: Dictated on workstation # [id number]
== END ==
LOC: RAD 15:00
PROVIDERS: ATTEND Nurse Practitioner Family
DX: Z12.31 Encounter for screening mammogram for malignant neoplasm of breast (principal)
CPT/HCPCS: 77063; 77067

== ENCOUNTER → 2021-02-17 | Outpatient (CLI) | payer MEDICARE, OTHER | LOC: ONC 09:54 | PROVIDERS: ATTEND Radiology Radiation Oncology | DX: C21.0 Malignant neoplasm of anus, unspecified (principal) | CPT/HCPCS: 99213 ==

== ENCOUNTER 2021-04-14 12:51 | Outpatient (CLI) | payer MEDICARE, OTHER ==
[~2021-04-14 12:51] MED LIST changes: +DICY20TA PO; -DICY20TA10 PO
[2021-04-14 13:15] VITALS: BP 136/76
== END 2021-04-14 13:30 ==
LOC: SDC 12:51
PROVIDERS: ATTEND Nurse Practitioner Family
DX: Z45.2 Encounter for adjustment and management of vascular access device (principal)
CPT/HCPCS: 96523

== ENCOUNTER → 2021-05-27 | Outpatient (CLI) | payer MEDICARE, OTHER ==
[~2021-05-27] VITALS: Ht 162.6 cm; Wt 78.6 kg
[2021-05-27 13:45] VITALS: BP 125/80
== END ==
LOC: SDC 13:02
PROVIDERS: ATTEND Nurse Practitioner Family
DX: Z45.2 Encounter for adjustment and management of vascular access device (principal)
CPT/HCPCS: 96523

== ENCOUNTER → 2021-07-07 | Outpatient (CLI) | payer MEDICARE, OTHER | LOC: ONC 08:44 | PROVIDERS: ATTEND Radiology Radiation Oncology | DX: Z01.89 Encounter for other specified special examinations (principal) | CPT/HCPCS: 99213 ==

== ENCOUNTER → 2022-01-12 | Outpatient (CLI) | payer MEDICARE, OTHER | LOC: ONC 10:24 | PROVIDERS: ATTEND Radiology Radiation Oncology | DX: Z51.0 Encounter for antineoplastic radiation therapy (principal); C21.0 Malignant neoplasm of anus, unspecified; I10 Essential (primary) hypertension; E78.5 Hyperlipidemia, unspecified; E03.9 Hypothyroidism, unspecified; E66.9 Obesity, unspecified | CPT/HCPCS: 99213 ==

== ENCOUNTER → 2022-02-08 | Outpatient (CLI) | payer MEDICARE, OTHER ==
--- NOTE | 2022-02-08 12:32 | Diagnostic Imaging Report ---
INDICATION: Routine screening. COMPARISON: 02/07/2021 and 01/27/2020. FINDINGS: Bilateral breast implants are again noted. The implant contours appear stable without evidence of extracapsular rupture. Calcifications along the implant shells bilaterally are again noted. Both breasts are heterogeneously dense, limiting the sensitivity of mammography. No mass or malignant appearing microcalcifications are seen. The axillae are unremarkable. IMPRESSION: No mammographic features suspicious for malignancy are identified. ACR BI-RADS Category 2: Benign findings. Result letter will be mailed to the patient. Note: At least 10% of breast cancer is not imaged by mammography. Dictated by: Dictated on workstation # [id number]
== END ==
LOC: RAD 10:42
PROVIDERS: ATTEND Nurse Practitioner Family
DX: Z12.31 Encounter for screening mammogram for malignant neoplasm of breast (principal)
CPT/HCPCS: 77063; 77067

== ENCOUNTER → 2022-07-20 | Outpatient (CLI) | payer MEDICARE ==
[~2022-07-20] MED LIST changes: -POTA10CA43 PO; +POTA10CA44 PO
== END ==
LOC: ONC 09:30
PROVIDERS: ATTEND Radiology Radiation Oncology
DX: C21.0 Malignant neoplasm of anus, unspecified (principal); I10 Essential (primary) hypertension; E78.5 Hyperlipidemia, unspecified; E03.9 Hypothyroidism, unspecified; E66.9 Obesity, unspecified
CPT/HCPCS: 99213

== ENCOUNTER → 2022-10-24 | Outpatient (CLI) | payer MEDICARE, OTHER ==
--- NOTE | 2022-10-24 17:09 | Diagnostic Imaging Report ---
INDICATION: Postmenopausal screening for osteoporosis COMPARISON: None FINDINGS: AP Spine L1-L4: [BMD (g/cm2): 1.016] [T-Score: -1.5] [Z-Score: -0.5] [BMD Previous: na] [BMD % Change: na] LT Hip Neck: [BMD (g/cm2): 0.708] [T-Score: -2.4] [Z-Score: -0.9] LT Hip Total: [BMD (g/cm2):0.833] [T-Score:-1.4] [Z-Score: -0.1] [BMD Previous: na] [BMD % Change: na] RT Hip Neck: [BMD (g/cm2):0.737] [T-Score:-2.2] [Z-Score:-0.7] RT Hip Total: [BMD (g/cm2):0.822] [T-score:-1.5] [Z-Score:-0.2] [BMD Previous:na] [BMD % Change:na] *Indicates significant change from prior examination based on 95% confidence level. World Health Organization criteria for BMD interpretation classify patients as Normal (T-score at or above -1.0), Osteopenic (T-score between -1.0 and -2.5) or Osteoporotic (T-score at or below -2.5). LIMITATIONS AND MODIFICATION: None. FRACTURE RISK (FRAX SCORE): The ten year probability of (%): Major Osteoporotic Fracture: [42.9] Hip Fracture: [30.5] IMPRESSION: 1. Osteopenia (Low bone mass). 2. Baseline examination. 3. See below National Osteoporosis Foundation guidelines on when to potentially initiate pharmacologic therapy. Based on the National Osteoporosis Foundation Guidelines, pharmacologic treatment should be initiated in any of the following, unless clinical conditions suggest otherwise: * Any patient with prior fragility fracture of the hip or vertebrae. A spine fracture indicates 5X risk for subsequent spine fracture and 2X risk for subsequent hip fracture. * Osteoporosis (T-score <-2.5). * Postmenopausal women and men age 50 and older with low bone mass/osteopenia (T-score between -1.0 and -2.5) by DXA and 10-year major osteoporotic fracture greater than 20% or a 10-year probability of hip fracture greater than 3%. These fracture risks are supplied above in the FRAX score, if applicable. * Clinician judgement and/or patient preferences may indicate treatment for people with 10-year fracture probabilities above or below these levels. Dictated by: Dictated on workstation # [id number]
== END ==
LOC: RAD 12:58
PROVIDERS: ATTEND Family Medicine
DX: M85.89 Other specified disorders of bone density and structure, multiple sites (principal); N95.1 Menopausal and female climacteric states
CPT/HCPCS: 77080

== ENCOUNTER → 2023-02-14 | Outpatient (CLI) | payer MEDICARE, OTHER ==
[~2023-02-14] MED LIST changes: +DICY-11 PO; -DICY10CA12 PO; -POTA10CA44 PO; +POTA10CA84 PO
--- NOTE | 2023-02-14 11:35 | Diagnostic Imaging Report ---
INDICATION: Routine screening. COMPARISON: Prior mammograms of 02/08/2022 and 02/07/2021. TECHNIQUE: 2D and 3D bilateral screening mammography was performed with CAD. FINDINGS: Bilateral breast implants are again noted. The implant contours are stable. There are some calcifications along the implant shells. No extracapsular rupture is detected. Both breasts remain heterogeneously dense, limiting the sensitivity of mammography. The parenchymal pattern is stable. No mass or malignant-appearing microcalcifications are identified. The axillae are unremarkable. IMPRESSION: No mammographic features suspicious for malignancy are identified. ACR BI-RADS Category 2: Benign findings. Result letter will be mailed to the patient. Note: At least 10% of breast cancer is not imaged by mammography. Dictated by: Dictated on workstation # [id number]
== END ==
LOC: RAD 10:00
PROVIDERS: ATTEND Family Medicine
DX: Z12.31 Encounter for screening mammogram for malignant neoplasm of breast (principal)
CPT/HCPCS: 77063; 77067